=== PATIENT | female | born 1965 | race Hispanic/Latino ===

== ENCOUNTER 2017-03-03 06:25 | Emergency (ER) | payer BC ==
[2017-03-03 07:03] VITALS: BP 156/92
[2017-03-03 07:32] LABS: Basophils % (Auto) 0.7 % (0.0-1.8); Eosinophils % (Auto) 7.2 % (0.0-4.3); Hematocrit 47.1 % (30.3-42.9); Hemoglobin 15.5 gm/dl (10.1-14.3); Mean Corpuscular HGB Conc 33 % (30-34); Mean Corpuscular Hemoglobin 30 pg (28-32); Mean Corpuscular Volume 91 fl (79-97); Platelet Count 312 K/mm3 (140-440); Red Blood Count 5.17 M/mm3 (3.65-5.03); Red Cell Distribution Width 13.5 % (13.2-15.2); White Blood Count 11.7 K/mm3 (4.5-11.0)
[2017-03-03 07:49] LABS: Anion Gap 18 mmol/L; Blood Urea Nitrogen 5 mg/dL (7-17); Calcium 8.6 mg/dL (8.4-10.2); Carbon Dioxide 23 mmol/L (22-30); Chloride 102.1 mmol/L (98-107); Glucose 177 mg/dL (65-100); Potassium 3.4 mmol/L (3.6-5.0); Sodium 140 mmol/L (137-145)
== END 2017-03-03 10:04 | disposition left against medical advice (07) ==
LOC: ED 06:25
DX: R07.9 Chest pain, unspecified (principal); Z53.21 Procedure and treatment not carried out due to patient leaving prior to being seen by health care provider
CPT/HCPCS: 36415; 80048; 84484; 85025; 93005; 93010

== ENCOUNTER 2018-02-26 15:59 | Emergency (ER) | payer BC ==
[2018-02-26 16:11] VITALS: BP 149/86
[2018-02-26] MEDS ORDERED: ZOFRAN ODT PO ONE (16:58)
[2018-02-26] MEDS ORDERED: NORCO 5/325 PO ONE (16:58)
--- NOTE | 2018-02-26 17:02 | Emergency Department Report ---
ED Fall HPI - General Chief Complaint: Fall Stated Complaint: NECK/ARM/SIDE PAIN Time Seen by Provider: 02/26/18 16:49 Source: patient Mode of arrival: Ambulatory - History of Present Illness Initial Comments: 52-year-old female past medical history breast cancer, migraines, obesity, depression presents with complaint of neck pain and headache status post mechanical fall down stairs at home earlier today. Patient states that as she was walking downstairs at home there was a slippery substance on the last step she slipped and fell backward and the back of her neck hit the edge of staircase. Patient braced himself slightly with right arm. Denies loss of consciousness but was dazed for several minutes. Patient was assisted by bystander. Denies sustaining any lacerations. Complaining of slight aching and right forearm which has since subsided. Patient primarily complaining of posterior neck pain. Denies any blurry vision nausea vomiting up her lower extremity paresthesias. Patient is ambulatory without assistance. MD Complaint: fall -: This morning Fall From: down stairs (#) (1) Fall Witnessed: yes, by family Place Fall Occurred: home Loss of Consciousness: none Prolonged Down Time?: no Symptoms Prior to Fall: none Location: neck Location - Extremities: Right: Forearm Severity: moderate Severity scale (0 -10): 6 Quality: aching Context: tripped/slipped Associated Symptoms: denies, headache, neck pain - Related Data Home Medications Medication Instructions Recorded Confirmed Last Taken Citalopram [Celexa] 20 mg PO QDAY 07/26/13 09/09/13 09/08/13 Topiramate [Topamax] 100 mg PO BID 07/26/13 09/09/13 09/08/13 Previous Rx's Medication Instructions Recorded Last Taken Type Cyclobenzaprine HCl [FLEXERIL] 10 mg PO TID PRN #12 tablet 09/09/13 Unknown Rx HYDROcodone/APAP 5-325 [[place] 1 each PO Q6HR PRN #12 tablet 09/09/13 Unknown Rx 5/325 mg] Acetaminophen/Codeine [Tylenol 1 tab PO Q6H PRN #6 tab 02/26/18 Unknown Rx /Codeine # 3 tab] Ibuprofen [Motrin] 800 mg PO Q8HR PRN #20 tablet 02/26/18 Unknown Rx Allergies Allergy/AdvReac Type Severity Reaction Status Date / Time No Known Allergies Allergy Verified 07/26/13 20:13 ED Review of Systems ROS: Stated complaint: NECK/ARM/SIDE PAIN Other details as noted in HPI Constitutional: denies: chills, fever Eyes: denies: eye pain, eye discharge, vision change ENT: denies: ear pain, throat pain Respiratory: denies: cough, shortness of breath, wheezing Cardiovascular: denies: chest pain, palpitations Endocrine: no symptoms reported Gastrointestinal: denies: abdominal pain, nausea, diarrhea Genitourinary: denies: urgency, dysuria, discharge Musculoskeletal: denies: back pain, joint swelling, arthralgia Skin: denies: rash, lesions Neurological: denies: headache, weakness, paresthesias Psychiatric: denies: anxiety, depression Hematological/Lymphatic: denies: easy bleeding, easy bruising ED Past Medical Hx - Past Medical History Hx Headaches / Migraines: Yes Hx Psychiatric Treatment: Yes (depression) Additional medical history: Migraines - Surgical History Hx Cholecystectomy: Yes Additional Surgical History: Hysterectomy, tonilectomy, tubal ligation, bunion removal - Social History Smoking Status: Never Smoker Substance Use Type: None - Medications Home Medications: Home Medications Medication Instructions Recorded Confirmed Last Taken Type Citalopram [Celexa] 20 mg PO QDAY 07/26/13 09/09/13 09/08/13 History Topiramate [Topamax] 100 mg PO BID 07/26/13 09/09/13 09/08/13 History Cyclobenzaprine HCl [FLEXERIL] 10 mg PO TID PRN #12 tablet 09/09/13 Unknown Rx HYDROcodone/APAP 5-325 [[place] 1 each PO Q6HR PRN #12 tablet 09/09/13 Unknown Rx 5/325 mg] Acetaminophen/Codeine [Tylenol 1 tab PO Q6H PRN #6 tab 02/26/18 Unknown Rx /Codeine # 3 tab] Ibuprofen [Motrin] 800 mg PO Q8HR PRN #20 tablet 02/26/18 Unknown Rx ED Physical Exam - General Limitations: No Limitations General appearance: alert, in no apparent distress - Head Head exam: Present: atraumatic, normocephalic - Eye Eye exam: Present: normal appearance, PERRL, EOMI - ENT ENT exam: Present: mucous membranes moist - Neck Neck exam: Present: normal inspection, tenderness (there is slight ecchymosis on posterior neck. Tender to palpation), full ROM (neck flexion and extension is intact) - Respiratory Respiratory exam: Present: normal lung sounds bilaterally, other (no bruising on chest wall). Absent: respiratory distress - Cardiovascular Cardiovascular Exam: Present: regular rate, normal rhythm. Absent: systolic murmur, diastolic murmur, rubs, gallop - GI/Abdominal GI/Abdominal exam: Present: soft (abdomen soft nontender nondistended), normal bowel sounds - Extremities Exam Extremities exam: Present: normal inspection - Back Exam Back exam: Present: normal inspection, full ROM (there is no midline thoracic or lumbar spinal tenderness) - Neurological Exam Neurological exam: Present: alert, oriented X3, CN II-XII intact, normal gait - Expanded Neurological Exam Expanded Patient oriented to: Present: person, place, time Cranial nerves: EOM's Intact: Normal Cerebellar function: Finger to Nose: Normal, Heel to Sapp: Normal Sensory exam: Upper Extremity Light Touch: Normal, Lower Extremity Pin Prick: Normal Motor strength exam: RUE: 5, LUE: 5, RLE: 5, LLE: 5 Best Eye Response (Raysal): (4) open spontaneously Best Motor Response (Raysal): (6) obeys commands Best Verbal Response (Haseeb): (5) oriented Raysal Total: 15 - Psychiatric Psychiatric exam: Present: normal affect, normal mood - Skin Skin exam: Present: warm, dry, intact, normal color. Absent: rash ED Course Vital Signs 02/26/18 16:08 Temperature 98 F Pulse Rate 74 Respiratory 16 Rate Blood Pressure 149/86 O2 Sat by Pulse 96 Oximetry ED Medical Decision Making - Medical Decision Making A/P: Mechanical fall 1-no evidence of fractures or intracranial hemorrhage on CT is 2-Motrin when necessary, short course Tylenol 3 when necessary 3-follow-up with primary care doctor 4- no clinical neurological deficits. No midline thoracic or lumbar spinal tenderness. Patient is ambulatory without assistance. Strength 5 out of 5 bilateral upper and lower extremities. Critical care attestation.: If time is entered above; I have spent that time in minutes in the direct care of this critically ill patient, excluding procedure time. ED Disposition Clinical Impression: Musculoskeletal pain Fall down stairs Qualifiers: Encounter type: initial encounter Qualified Code(s): W10.8XXA - Fall (on) (from ) other stairs and steps, initial encounter Disposition: - TO HOME OR SELFCARE Is pt being admited?: No Does the pt Need Aspirin: No Condition: Stable Instructions: Musculoskeletal Pain (ED) Prescriptions: Acetaminophen/Codeine [Tylenol /Codeine # 3 tab] 1 tab PO Q6H PRN #6 tab PRN Reason: Pain Ibuprofen [Motrin] 800 mg PO Q8HR PRN #20 tablet PRN Reason: Pain Referrals: PRIMARY CARE, [Primary Care Provider] - 3-5 Days JACQUELINE OLIVAS MD [Staff Physician] - 3-5 Days MARTHA SETH MD [Staff Physician] - 3-5 Days [facility] [Provider Group] - 3-5 Days Time of Disposition: 18:26
--- NOTE | 2018-03-02 14:17 | Cat Scan Report ---
FINAL REPORT EXAM: CT CERVICAL SPINE WO CON HISTORY: neck pain s/p fall down stairs TECHNIQUE: CT cervical spine with reconstructions PRIORS: None. FINDINGS: Vertebral bodies demonstrate normal height and alignment. The disk spaces are within normal limits. The facet joints demonstrate normal alignment. The spinous processes are intact. Craniocervical junction is unremarkable. C1 and C2 are intact. IMPRESSION: Negative CT cervical spine. No acute abnormality seen.
--- NOTE | 2018-03-02 14:17 | Cat Scan Report ---
FINAL REPORT EXAM: CT HEAD/BRAIN WO CON HISTORY: s/p fall down stairs head and neck pain TECHNIQUE: CT head without contrast PRIORS: None. FINDINGS: No acute intra-axial or extra-axial hemorrhage is identified. There is no evidence of midline shift or mass effect. The ventricles and sulci are within normal limits. [place]-white matter differentiation is intact. No acute parenchymal abnormalities seen. Bony calvarium is grossly intact. V there is a fluid level present within the right maxillary sinus. IMPRESSION: Right maxillary sinusitis likely acute No acute intracranial findings
== END 2018-02-26 18:33 | disposition home or self-care (01) ==
LOC: ED 15:59
DX: M79.1 Myalgia (principal); G43.909 Migraine, unspecified, not intractable, without status migrainosus; Z90.49 Acquired absence of other specified parts of digestive tract; Z90.710 Acquired absence of both cervix and uterus; Z98.51 Tubal ligation status; F32.9 Major depressive disorder, single episode, unspecified; W10.8XXA Fall (on) (from) other stairs and steps, initial encounter; Y93.89 Activity, other specified; Y92.89 Other specified places as the place of occurrence of the external cause; Y99.8 Other external cause status
CPT/HCPCS: 70450; 72125; 99283; Q0162

== ENCOUNTER 2018-07-02 07:51 | Outpatient (CLI) | payer BC ==
[2018-07-02 08:28] LABS: Alanine Aminotransferase 70 units/L (7-56); Albumin 4.2 g/dL (3.9-5); BUN/Creatinine Ratio 20; Blood Urea Nitrogen 10 mg/dL (7-17); Calcium 9.2 mg/dL (8.4-10.2); Hemolysis Index 8
[2018-07-05 22:12] LABS: ANA Screen, IFA Negative (Negative)
== END 2018-07-02 07:52 | disposition home or self-care (01) ==
LOC: LAB 07:51
PROVIDERS: ATTEND Internal Medicine Gastroenterology
DX: K75.81 Nonalcoholic steatohepatitis (NASH) (principal); E11.9 Type 2 diabetes mellitus without complications; E78.5 Hyperlipidemia, unspecified; I10 Essential (primary) hypertension; G43.509 Persistent migraine aura without cerebral infarction, not intractable, without status migrainosus; Z90.49 Acquired absence of other specified parts of digestive tract; Z90.710 Acquired absence of both cervix and uterus
CPT/HCPCS: 36415; 80053; 83516; 83520; 86038

== ENCOUNTER 2018-07-08 07:45 | Outpatient (CLI) | payer BC ==
--- NOTE | 2018-07-08 08:52 | Ultrasound Report ---
ULTRASOUND ABDOMEN LIMITED: TECHNIQUE: Transabdominal ultrasound with color Doppler interrogation. HISTORY: Diabetes, hyperlipidemia, hypertension, YANG. COMPARISON: none. FINDINGS: LIVER: Moderate to severe fatty infiltration of the liver is evident. No obvious liver mass, enlargement or surface nodularity. BILIARY SYSTEM: Cholecystectomy. No biliary dilatation is appreciated. The CBD measures 6 mm. PANCREAS: Obscured. RIGHT KIDNEY: Normal. PROXIMAL AORTA: Normal. ASCITES: None. IMPRESSION: Fatty liver.
== END 2018-07-08 07:46 | disposition home or self-care (01) ==
LOC: US 07:45
PROVIDERS: ATTEND Internal Medicine Gastroenterology
DX: K76.0 Fatty (change of) liver, not elsewhere classified (principal); E11.9 Type 2 diabetes mellitus without complications; E78.5 Hyperlipidemia, unspecified; I10 Essential (primary) hypertension; G43.509 Persistent migraine aura without cerebral infarction, not intractable, without status migrainosus; Z90.710 Acquired absence of both cervix and uterus; Z90.49 Acquired absence of other specified parts of digestive tract
CPT/HCPCS: 76705

== ENCOUNTER 2018-11-16 08:43 | Outpatient (CLI) | payer BC ==
--- NOTE | 2018-11-16 14:19 | Mammography Report ---
BILATERAL DIGITAL DIAGNOSTIC MAMMOGRAM with CAD: 11/16/18 08:43:00 CLINICAL: History of left breast cancer status post partial mastectomy and history of a right benign biopsy. Status post bilateral reduction mammoplasty. COMPARISON:05/08/18 FINDINGS: The breasts are mostly fatty with a few bilateral scattered fibroglandular densities. Mild bilateral benign postsurgical scar.No mass, architectural distortion or suspicious calcifications. A right upper biopsy clip. IMPRESSION: No mammographic evidence of malignancy. BI-RADS CATEGORY: 2 - - Benign RECOMMENDATION: Routine mammographic screening in one year. ACR BI-RADS MAMMOGRAPHIC CODES: 0 = Needs additional imaging evaluation; 1 = Negative; 2 = Benign; 3 = Probably benign; 4 = Suspicious; 5 = Malignant; 6 = Known biopsy-proven malignancy COMMENT: 1. Dense breast tissue, i.e., adenosis, fibrocystic changes, etc., may obscure an underlying neoplasm. 2. Approximately 10% of cancers are not detected with mammography. 3. A negative mammography report should not delay biopsy if a clinically suspicious mass is present. COMMENT: Patient follow-up letters are generated by our [employer] application.
== END 2018-11-16 08:44 | disposition home or self-care (01) ==
LOC: SPVWC 08:43
PROVIDERS: ATTEND Surgery
DX: C50.212 Malignant neoplasm of upper-inner quadrant of left female breast (principal); I10 Essential (primary) hypertension; Z90.49 Acquired absence of other specified parts of digestive tract; Z90.710 Acquired absence of both cervix and uterus
CPT/HCPCS: 77066

== ENCOUNTER 2018-12-02 15:03 | Emergency (ER) | payer BC ==
--- NOTE | 2018-12-02 15:19 | Emergency Department Report ---
Blank Doc - Documentation Documentation: This is a 53-year-old female that presents with bilateral cervical paraspinal area. Patient stated that she was at work looking down and when she looked up started to have sharp pain. Denies any injuries or trauma. This initial assessment/diagnostic orders/clinical plan/treatment(s) is/are subject to change based on patient's health status, clinical progression and re- assessment by fellow clinical providers in the ED. Further treatment and workup at subsequent clinical providers discretion. Patient/guardians urged not to elope from the ED as their condition may be serious if not clinically assessed and managed. Initial orders include: 1- Patient sent to [facility] for further evaluation and treatment
[2018-12-02 15:20] VITALS: BP 130/75
--- NOTE | 2018-12-02 15:47 | Emergency Department Report ---
ED Neck Pain/Injury HPI - General Chief Complaint: Neck Pain/Injury Stated Complaint: NECK PAIN Time Seen by Provider: 12/02/18 15:17 Mode of arrival: Ambulatory Limitations: No Limitations - History of Present Illness Initial Comments: Miss Hooks is a very pleasant 52-year-old female who had sudden onset of upper neck pain when she looked down while sitting at her desk. Pain is moderately severe. She has stiffness. She has difficulty looking left or right. Last summer she had neck injury after fall. CT scan of the neck was obtained here in our emergency department after that trauma last January.. She denies paresthesias. No weakness in arms. Denies chest pain. MD Complaint: neck pain, neck injury -: Gradual Severity: moderate Quality: aching Consistency: constant Worsens With: movement of neck Context: turning/bending - Related Data Home Medications Medication Instructions Recorded Confirmed Last Taken Citalopram [Celexa] 20 mg PO QDAY 07/26/13 09/09/13 09/08/13 Topiramate [Topamax] 100 mg PO BID 07/26/13 09/09/13 09/08/13 Previous Rx's Medication Instructions Recorded Last Taken Type Cyclobenzaprine HCl [FLEXERIL] 10 mg PO TID PRN #12 tablet 09/09/13 Unknown Rx HYDROcodone/APAP 5-325 [[place] 1 each PO Q6HR PRN #12 tablet 09/09/13 Unknown Rx 5/325 mg] Acetaminophen/Codeine [Tylenol 1 tab PO Q6H PRN #6 tab 02/26/18 Unknown Rx /Codeine # 3 tab] Acetaminophen/Codeine [Tylenol 1 tab PO Q6H PRN #15 tab 08/24/18 Unknown Rx /Codeine # 3 tab] Ibuprofen [Motrin 800 MG tab] 800 mg PO Q8HR PRN #12 tablet 08/24/18 Unknown Rx Sulfamethoxazole/Trimethoprim 1 each PO BID 10 Days #20 tablet 08/24/18 Unknown Rx [Bactrim DS TAB] Sulfamethoxazole/Trimethoprim 1 each PO BID 10 Days #20 tablet 08/24/18 Unknown Rx [Bactrim DS TAB] cephALEXin [Keflex] 500 mg PO Q8HR 7 Days #21 cap 08/24/18 Unknown Rx Cyclobenzaprine [Flexeril] 10 mg PO TID PRN #20 tablet 12/02/18 Unknown Rx Ibuprofen 800 mg PO TID 5 Days #15 tablet 12/02/18 Unknown Rx Allergies Allergy/AdvReac Type Severity Reaction Status Date / Time No Known Allergies Allergy Verified 07/26/13 20:13 ED Review of Systems ROS: Stated complaint: NECK PAIN Other details as noted in HPI Constitutional: denies: fever, malaise Respiratory: denies: cough Cardiovascular: denies: chest pain ED Past Medical Hx - Past Medical History Previous Medical History?: Yes Hx Hypertension: Yes Hx Diabetes: Yes Hx Headaches / Migraines: Yes Hx Psychiatric Treatment: Yes (depression) Additional medical history: Migraines - Surgical History Past Surgical History?: Yes Hx Cholecystectomy: Yes Additional Surgical History: Hysterectomy, tonilectomy, tubal ligation, bunion removal, bilateral lumpectomy with reconstruction. x 2 - Social History Smoking Status: Never Smoker Substance Use Type: None - Medications Home Medications: Home Medications Medication Instructions Recorded Confirmed Last Taken Type Citalopram [Celexa] 20 mg PO QDAY 07/26/13 09/09/13 09/08/13 History Topiramate [Topamax] 100 mg PO BID 07/26/13 09/09/13 09/08/13 History Cyclobenzaprine HCl [FLEXERIL] 10 mg PO TID PRN #12 tablet 09/09/13 Unknown Rx HYDROcodone/APAP 5-325 [[place]olph 1 each PO Q6HR PRN #12 tablet 09/09/13 Unknown Rx 5/325 mg] Acetaminophen/Codeine [Tylenol 1 tab PO Q6H PRN #6 tab 02/26/18 Unknown Rx /Codeine # 3 tab] Acetaminophen/Codeine [Tylenol 1 tab PO Q6H PRN #15 tab 08/24/18 Unknown Rx /Codeine # 3 tab] Ibuprofen [Motrin 800 MG tab] 800 mg PO Q8HR PRN #12 tablet 08/24/18 Unknown Rx Sulfamethoxazole/Trimethoprim 1 each PO BID 10 Days #20 tablet 08/24/18 Unknown Rx [Bactrim DS TAB] Sulfamethoxazole/Trimethoprim 1 each PO BID 10 Days #20 tablet 08/24/18 Unknown Rx [Bactrim DS TAB] cephALEXin [Keflex] 500 mg PO Q8HR 7 Days #21 cap 08/24/18 Unknown Rx Cyclobenzaprine [Flexeril] 10 mg PO TID PRN #20 tablet 12/02/18 Unknown Rx Ibuprofen 800 mg PO TID 5 Days #15 tablet 12/02/18 Unknown Rx ED Physical Exam - General Limitations: No Limitations General appearance: alert, in no apparent distress - Head Head exam: Present: atraumatic, normocephalic - Eye Eye exam: Present: normal appearance. Absent: scleral icterus, conjunctival injection - ENT ENT exam: Present: normal exam. Absent: normal orophraynx - Neck Neck exam: Present: normal inspection, full ROM. Absent: tenderness, meningismus - Respiratory Respiratory exam: Absent: respiratory distress - Neurological Exam Neurological exam: Present: alert, oriented X3. Absent: motor sensory deficit (intact handgrip strength, intact bicep/tricep strength) - Psychiatric Psychiatric exam: Absent: normal affect, normal mood - Skin Skin exam: Absent: warm, dry, intact, normal color ED Course Vital Signs 12/02/18 15:19 Temperature 97.9 F Pulse Rate 86 Respiratory 18 Rate Blood Pressure 130/75 O2 Sat by Pulse 97 Oximetry ED Medical Decision Making - Medical Decision Making Mrs. Hooks presents with cervical strain. Given IM Toradol in the ED. Prescribed ibuprofen and Flexeril. Referred to orthopedic surgeon. I reviewed electronic medical record. In January [address] cervical spine which did not reveal any abnormality or indication of degenerative disc disease. Critical care attestation.: If time is entered above; I have spent that time in minutes in the direct care of this critically ill patient, excluding procedure time. ED Disposition Clinical Impression: Acute cervical sprain Disposition: DC- TO HOME OR SELFCARE Is pt being admited?: No Does the pt Need Aspirin: No Condition: Stable Instructions: Cervical Spine Strain (ED) Prescriptions: Cyclobenzaprine [Flexeril] 10 mg PO TID PRN #20 tablet PRN Reason: Muscle Spasm Ibuprofen 800 mg PO TID 5 Days #15 tablet Referrals: MARTHA SETH MD [Staff Physician] - 3-5 Days
[2018-12-02] MEDS ORDERED: TORADOL IM ONE (15:50)
== END 2018-12-02 15:59 | disposition home or self-care (01) ==
LOC: ED 15:03
DX: S16.1XXA Strain of muscle, fascia and tendon at neck level, initial encounter (principal); I10 Essential (primary) hypertension; E11.9 Type 2 diabetes mellitus without complications; G43.909 Migraine, unspecified, not intractable, without status migrainosus; F32.9 Major depressive disorder, single episode, unspecified; Z90.49 Acquired absence of other specified parts of digestive tract; Z90.710 Acquired absence of both cervix and uterus; W18.30XA Fall on same level, unspecified, initial encounter; Y93.89 Activity, other specified; Y92.89 Other specified places as the place of occurrence of the external cause; Y99.8 Other external cause status
CPT/HCPCS: 96372; 99282; J1885

== ENCOUNTER 2018-12-16 08:01 | Outpatient (CLI) | payer BC ==
[2018-12-16 08:40] LABS: Alanine Aminotransferase 139 units/L (7-56); Albumin 4.3 g/dL (3.9-5); BUN/Creatinine Ratio 12; Blood Urea Nitrogen 6 mg/dL (7-17); Calcium 9.3 mg/dL (8.4-10.2); Chol/HDL Ratio 4.1 %; Hemolysis Index 3
== END 2018-12-16 08:02 | disposition home or self-care (01) ==
LOC: LAB 08:01
PROVIDERS: ATTEND Internal Medicine Gastroenterology
DX: K76.0 Fatty (change of) liver, not elsewhere classified (principal); E11.9 Type 2 diabetes mellitus without complications; I10 Essential (primary) hypertension; Z90.710 Acquired absence of both cervix and uterus; Z90.49 Acquired absence of other specified parts of digestive tract
CPT/HCPCS: 36415; 80053; 80061; 83036

== ENCOUNTER 2019-02-18 06:52 | Outpatient (CLI) | payer BC ==
--- NOTE | 2019-02-18 09:35 | PET Report ---
PET/CT:02/18/19 06:52:00 CLINICAL: Breast cancer restaging. History of left breast cancer status post partial mastectomy and history of a right benign biopsy. History of bilateral reduction mammoplasty. RADIOPHARMACEUTICAL: 13.192mCi F18-FDG. COMPARISON: None. TECHNIQUE- Following intravenous injection of F-18 FDG and an approximately 60 minute uptake period, CT and PET images from the mid skull to the upper thighs were acquired with the patient in the fasted state. No contrast was administered. The CT protocol used for this PET CT study is designed for attenuation correction and anatomic localization of PET abnormalities. This restorative rehab aide CT is not desired to produce and cannot replace, [id number] diagnostic CT scans with specific imaging protocols for different body parts and indications. Plasma glucose at the time of this test: 129g/dl. The standardized uptake values (SUV) are normalized to patient body weight and indicate the highest activity concentration (SUV max) in a given disease site. FINDINGS: Brain--Physiologic FDG uptake in the visualized regions of the brain. Neck--Physiologic FDG uptake in mucosal structures. No mass or lymphadenopathy. Chest--Physiologic FDG uptake in mediastinal blood pool and myocardium. Lungs--No abnormal uptake. No pulmonary nodule or mass. Pleura/pericardium--No abnormal uptake. Thoracic nodes--No abnormal uptake. Hepatobiliary--No abnormal uptake. Liver background SUV mean, as a reference for comparing FDG studies, is 5.1 . No liver mass. Status post cholecystectomy. Spleen--No abnormal uptake. Pancreas--No abnormal uptake. Adrenal Glands--No abnormal uptake. Kidneys/Ureters/Bladder--No abnormal uptake. Abdominopelvic Nodes--No abnormal uptake. Bowel/Peritoneum/Mesentery--No abnormal uptake. Physiologic uptake in the distal colon. Pelvic organs--No abnormal uptake. Status post hysterectomy. No ovaries identified. Bones/Soft Tissues--No abnormal uptake and no suspicious bone lesion. Other findings: A fat containing umbilical hernia. IMPRESSION- Negative study with no evidence of disease recurrence or metastasis.
== END 2019-02-18 06:53 | disposition home or self-care (01) ==
LOC: PET 06:52
PROVIDERS: ATTEND Surgery
DX: C50.312 Malignant neoplasm of lower-inner quadrant of left female breast (principal); I10 Essential (primary) hypertension; Z90.710 Acquired absence of both cervix and uterus; Z90.49 Acquired absence of other specified parts of digestive tract
CPT/HCPCS: 78815; 82962; A9552

== ENCOUNTER 2019-03-09 07:05 | Day surgery (SDC) | payer BC ==
[~2019-03-09 07:05] MED LIST: NACL 0.9% 1000 ML 1,000 ML IV SCH
[2019-03-09] MEDS ORDERED: DIPRIVAN 10 MG/ML IV ONE ×2 (09:48→10:13)
[2019-03-09] MEDS ORDERED: XYLOCAINE 2% INFILTRATI ONE (10:13)
[2019-03-09] MEDS ORDERED: VERSED ONE (10:13)
--- NOTE | 2019-03-09 10:51 | Anesthesia Consultation ---
Anesthesia Consult and Med Hx Date of service: 03/09/19 - Airway Anesthetic Teeth Evaluation: Good ROM Head & Neck: Adequate Mental/Hyoid Distance: Adequate Mallampati Class: Class III Intubation Access Assessment: Good - Pulmonary Exam CTA: Yes - Cardiac Exam Cardiac Exam: No Murmur - Pre-Operative Health Status ASA Pre-Surgery Classification: ASA3 Proposed Anesthetic Plan: MAC - Pulmonary Hx Smoking: No Hx Asthma: No - Cardiovascular System Hx Hypertension: Yes - Other Systems Hx Cancer: Yes Hx Obesity: Yes
--- NOTE | 2019-03-09 10:52 | Anesthesia Day of Surgery ---
Anesthesia Day of Surgery - Day of Surgery Patient Examined: Yes Patient H&P Reviewed: Yes Patient is NPO: Yes Beta Blockers: No
--- NOTE | 2019-03-09 10:54 | Short Stay Summary ---
Short Stay Documentation Date of service: 03/09/19 Narrative H&P: The patient presents for her first sceening colonoscopy and for EGD to evaluate severe established GERD and exclude Brennan's - History Past Medical History: cancer (breast cancer), diabetes, hypertension Past Surgical History: Other (breast surgery) Social history: no significant social history - Allergies and Medications Current Medications: Allergies No Known Allergies Allergy (Verified 07/26/13 20:13) Home Medications Medication Instructions Recorded Confirmed Last Taken Type Aleve 1 tab PO PRN PRN 01/01/19 03/08/19 Unknown History Anastrozole 1 mg PO DAILY 01/01/19 03/09/19 03/08/19 History Cetirizine HCl 10 mg PO DAILY 01/01/19 03/08/19 Unknown History Clonidine 0.1 mg PO DAILY 01/01/19 03/09/19 03/06/19 History Janumet 50-1,000 mg 1 tab PO BID 01/01/19 03/09/19 03/08/19 History Losartan 25 mg PO DAILY 01/01/19 03/08/19 03/08/19 History Omeprazole 1 tab PO DAILY 01/01/19 03/09/19 03/08/19 History LORazepam 1 mg PO DAILY 03/09/19 03/09/19 03/05/19 History Active Medications Sodium Chloride (Nacl 0.9% 1000 Ml) 1,000 mls @ 50 mls/hr IV DIRECT BEBA Last Admin: 03/09/19 09:35 Dose: 50 mls/hr Documented by: - Physical exam General appearance: no acute distress, well-nourished, obese Integumentary: no rash, no growths, no abnormal pigmentation HEENT: Atraumatic, PERRLA, EOMI, Mucous membr. moist/pink Lungs: Clear to auscultation, Normal air movement Breasts: deferred Heart: Regular rate, Normal S1, Normal S2, No murmurs Gastrointestinal: normoactive bowel sounds, no tenderness, no distended, no masses, no guarding, no organomegaly, obese Female Genitourinary: deferred Rectal Exam: normal exam-external/orifice Extremities: no ischemia, pulses intact, pulses symmetrical, No edema, normal temperature, normal color, Full ROM Neurological: Normal gait, Normal speech, Strength at 5/5 X4 ext, Normal tone, Sensation intact, Cranial nerves 3-12 NL - Brief post op/procedure progress note Date of procedure: 03/09/19 Findings: see dictated reports Estimated blood loss: none Pathology: list (2 descending colon polyps) Specimen disposition: to lab Condition: stable - Disposition Condition at discharge: Good Disposition: DC-01 TO HOME OR SELFCARE - Discharge Diagnoses (1) GERD (gastroesophageal reflux disease) Status: Acute (2) Colon cancer screening Status: Acute Short Stay Discharge Plan Activity: other (no driving for 24 hours) Weight Bearing Status: Full Weight Bearing Diet: diabetic Follow up with: LINDA CARLTON MD [Primary Care Provider] - 7 Days
--- NOTE | 2019-03-09 10:59 | Operative Report ---
Operative Report Operative Report: Date of procedure: 03/09/2019 Procedure: Esophagogastroduodenoscopy Preprocedure diagnosis: Severe heartburn, rule out Brennan's. Post procedure diagnosis: Mild distal esophagitis, normal stomach and duodenum. Endoscopist: Dr. Lozada Anesthesia: Monitored anesthesia care per anesthesia department Medications: Propofol per anesthesia Estimated blood loss: 0 After careful discussion of the nature and purpose of the procedure as well as details the technique risks benefits and alternatives consent was obtained. The patient was placed in the left lateral decubitus position and medicated per anesthesia. The tip of the Bulbstorm EQ 570 video scope was passed per orum under direct vision into the esophagus and advanced into the stomach and descending duodenum. The descending duodenum the duodenal bulb and pylorus were symmetrical and normal. The scope was withdrawn into the stomach and the stoma ch then gently insufflated with air. The antrum was normal. The stomach was further insufflated and the scope was then retroflexed and partially withdrawn. The cardia, fundus, and body of the stomach were within normal limits and easily distensible.The scope was then withdrawn in the forward position. The esophagogastric junction was at 38 cm. There was very mild inflammation present right at the Z line. The esophageal body was otherwise normal throughout. The procedure was was well tolerated and the patient was observed in recovery. Impressions: LA class a esophagitis and no evidence of Brennan's. Normal stomach and duodenum. Plan: Continue acid suppression therapy. Electronically signed: Yordan Lozada MD
--- NOTE | 2019-03-09 11:02 | Operative Report ---
Operative Report Operative Report: Date of procedure: 03/09/2019 Preprocedure diagnosis: Colon cancer screening, no prior studies. Post procedure diagnosis: 2 descending colon polyps. Procedure: Colonoscopy to the cecum and hot snare cautery 2. Endoscopist: Dr. Lozada Anesthesia: Monitored anesthesia care per anesthesia department Estimated blood loss: 0 Medications: Monitored anesthesia care. See separate report by anesthesia for details. After careful discussion of the nature and purpose of the procedure as well as details of the technique risks benefits and alternatives the patient gave consent. Please see recent history and physical from the office. The patient was placed in the left lateral decubitus position and medicated per anesthesia. A rectal exam was performed sphincter tone was normal there were no masses palpable. The [employer] 570 scope was passed transanally and advanced under continuous direct vision without difficulty to the cecum. The colon was well prepared. The cecum was normal. The ascending colon was normal and on forward and retroflexed views. The transverse colon was normal. There were 2 polyps in the descending colon between 6 and 8 mm in size. Both polyps were pedunculated and removed with the snare and electrocautery. Polyps were retrieved by suction. No bleeding was encountered post polypectomy. The sigmoid colon reveal scattered diverticula. The rectum was normal on forward and retroflexed views. The procedure was well-tolerated overall and the patient was observed in r ecovery. Conclusions: Descending colon polyps. Scattered sigmoid diverticula. Plan: Await pathology. Repeat colonoscopy in 5 years. Signed electronically: Yordan Lozada M.D.
[2019-03-09 11:18] VITALS: BP 116/63
== END 2019-03-09 07:06 | disposition home or self-care (01) ==
LOC: GIO 07:05
PROVIDERS: ATTEND Internal Medicine Gastroenterology
DX: Z12.11 Encounter for screening for malignant neoplasm of colon (principal); D12.4 Benign neoplasm of descending colon; K21.0 Gastro-esophageal reflux disease with esophagitis; K75.81 Nonalcoholic steatohepatitis (NASH); E11.9 Type 2 diabetes mellitus without complications; I10 Essential (primary) hypertension; G43.509 Persistent migraine aura without cerebral infarction, not intractable, without status migrainosus; Z87.440 Personal history of urinary (tract) infections; Z90.49 Acquired absence of other specified parts of digestive tract; Z85.3 Personal history of malignant neoplasm of breast; Z98.51 Tubal ligation status; Z90.710 Acquired absence of both cervix and uterus; Z79.899 Other long term (current) drug therapy; Z85.89 Personal history of malignant neoplasm of other organs and systems; Z98.890 Other specified postprocedural states
CPT/HCPCS: 43235; 45385; 82962; 88305; J2250; J2704; J7030

== ENCOUNTER 2019-03-24 07:15 | Outpatient (CLI) | payer BC ==
[2019-03-24 07:42] LABS: Hematocrit 46.9 % (30.3-42.9); Mean Corpuscular HGB Conc 34 % (30-34); Mean Corpuscular Volume 92 fl (79-97); Platelet Count 284 K/mm3 (140-440); Red Blood Count 5.09 M/mm3 (3.65-5.03); Red Cell Distribution Width 13.7 % (13.2-15.2)
[2019-03-24 08:01] LABS: Alanine Aminotransferase 91 units/L (7-56); Albumin 4.1 g/dL (3.9-5); BUN/Creatinine Ratio 14; Blood Urea Nitrogen 10 mg/dL (7-17); Calcium 9.1 mg/dL (8.4-10.2); Hemolysis Index 11
== END 2019-03-24 07:16 | disposition home or self-care (01) ==
LOC: LAB 07:15
PROVIDERS: ATTEND Internal Medicine Hematology & Oncology
DX: C50.912 Malignant neoplasm of unspecified site of left female breast (principal); K21.9 Gastro-esophageal reflux disease without esophagitis; I10 Essential (primary) hypertension; E66.9 Obesity, unspecified; Z90.89 Acquired absence of other organs; Z90.710 Acquired absence of both cervix and uterus
CPT/HCPCS: 36415; 80053; 85027; 86300

== ENCOUNTER 2019-04-15 07:37 | Outpatient (CLI) | payer BC ==
--- NOTE | 2019-04-16 01:21 | Treadmill Report ---
TREADMILL STRESS TEST REPORT REASON FOR STUDY: Chest pain. STRESS TEST PROTOCOL: The patient completed 7 minutes and 48 seconds of a Alvin protocol. She attained a peak heart rate of 146 per minute, which is 87% of her age predicted maximum (8.9 mets). No ischemic ECG changes. No chest pain. No arrhythmias. The test was terminated due to fatigue. IMPRESSION: Negative stress test. No evidence of stress-induced ischemia. [facility]# [id number] MARIALUISA/NTS
== END 2019-04-15 07:38 | disposition home or self-care (01) ==
LOC: CARD 07:37
PROVIDERS: ATTEND Nurse Practitioner Gerontology
DX: I34.0 Nonrheumatic mitral (valve) insufficiency (principal); E11.9 Type 2 diabetes mellitus without complications; K21.9 Gastro-esophageal reflux disease without esophagitis; I10 Essential (primary) hypertension; Z90.710 Acquired absence of both cervix and uterus; Z90.89 Acquired absence of other organs
CPT/HCPCS: 93017; 93306

== ENCOUNTER 2019-04-20 15:10 | Emergency (ER) | payer BC, OTHER ==
[2019-04-20 15:20] VITALS: BP 125/67
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
--- NOTE | 2019-04-20 15:52 | XRay Report ---
RIGHT ELBOW 2 VIEWS INDICATION / CLINICAL INFORMATION: Injury with right elbow pain. COMPARISON: None available. FINDINGS: BONES / JOINT(S): No acute fracture or subluxation. No significant arthritis. There is no evidence of joint effusion. SOFT TISSUES: No significant abnormality. ADDITIONAL FINDINGS: None. IMPRESSION: No acute abnormality. Signer Name: Vaughn Faith MD Signed: 04/20/2019 3:48 PM Workstation Name: [id number]
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
== END 2019-04-20 16:37 | disposition home or self-care (01) ==
LOC: ED 15:10
DX: M25.521 Pain in right elbow (principal); I10 Essential (primary) hypertension; E11.9 Type 2 diabetes mellitus without complications; K21.9 Gastro-esophageal reflux disease without esophagitis; G43.909 Migraine, unspecified, not intractable, without status migrainosus; F32.9 Major depressive disorder, single episode, unspecified; Z90.710 Acquired absence of both cervix and uterus; Z98.51 Tubal ligation status; Z90.89 Acquired absence of other organs; Z90.49 Acquired absence of other specified parts of digestive tract; Z79.899 Other long term (current) drug therapy
CPT/HCPCS: 99283

== ENCOUNTER 2019-04-26 07:28 | Outpatient (CLI) | payer BC | END 2019-04-26 07:29 | disposition home or self-care (01) | LOC: LAB 07:28 | PROVIDERS: ATTEND Nurse Practitioner Gerontology | DX: R79.82 Elevated C-reactive protein (CRP) (principal) | CPT/HCPCS: 36415; 86140 ==

== ENCOUNTER 2019-06-02 07:20 | Outpatient (CLI) | payer BC ==
[2019-06-02 08:01] LABS: Chol/HDL Ratio 3.47 %
[2019-06-02 13:20] LABS: Creatinine,Urine 108.9 mg/dL (0.1-20.0)
== END 2019-06-02 07:21 | disposition home or self-care (01) ==
LOC: LAB 07:20
PROVIDERS: ATTEND Nurse Practitioner Gerontology
DX: E11.9 Type 2 diabetes mellitus without complications (principal); E78.5 Hyperlipidemia, unspecified; I10 Essential (primary) hypertension; K21.9 Gastro-esophageal reflux disease without esophagitis; F32.9 Major depressive disorder, single episode, unspecified; Z98.51 Tubal ligation status; Z90.710 Acquired absence of both cervix and uterus
CPT/HCPCS: 36415; 80061; 82043; 83036

== ENCOUNTER 2019-06-14 06:52 | Outpatient (CLI) | payer BC | END 2019-06-14 06:53 | disposition home or self-care (01) | LOC: ECHO 06:52 | PROVIDERS: ATTEND Internal Medicine Cardiovascular Disease | DX: R94.31 Abnormal electrocardiogram [ECG] [EKG] (principal); E66.01 Morbid (severe) obesity due to excess calories; I51.89 Other ill-defined heart diseases; I10 Essential (primary) hypertension; K21.9 Gastro-esophageal reflux disease without esophagitis; Z86.79 Personal history of other diseases of the circulatory system; Z90.710 Acquired absence of both cervix and uterus; Z90.89 Acquired absence of other organs | CPT/HCPCS: 93306 ==

== ENCOUNTER 2019-07-23 15:46 | Outpatient (CLI) | payer BC ==
[2019-07-23 16:04] LABS: Basophils # (Auto) 0.1 K/mm3 (0.0-0.1); Basophils % (Auto) 0.6 % (0.0-1.8); Eosinophils # (Auto) 0.3 K/mm3 (0.0-0.4); Eosinophils % (Auto) 3.4 % (0.0-4.3); Hematocrit 49.7 % (30.3-42.9); Hemoglobin 17.1 gm/dl (10.1-14.3); Lymphocytes # (Auto) 2.8 K/mm3 (1.2-5.4); Mean Corpuscular HGB Conc 35 % (30-34); Mean Corpuscular Volume 89 fl (79-97); Monocytes # (Auto) 0.8 K/mm3 (0.0-0.8); Monocytes % (Auto) 8.9 % (0.0-7.3); Platelet Count 282 K/mm3 (140-440); Red Blood Count 5.58 M/mm3 (3.65-5.03); Red Cell Distribution Width 14.1 % (13.2-15.2)
[2019-07-23 17:00] LABS: Bilirubin,Urine Negative (Negative); Blood,Urine Negative (Negative); Color,Urine Straw (Yellow)
[2019-07-23 17:01] LABS: Protein,Urine <15 mg/dL mg/dL (Negative); Urobilinogen,Urine < 2.0 mg/dL (<2.0)
[2019-07-23 18:08] LABS: Alanine Aminotransferase 93 units/L (7-56); BUN/Creatinine Ratio 19; Blood Urea Nitrogen 13 mg/dL (7-17); Calcium 9.7 mg/dL (8.4-10.2); Hemolysis Index 15
[2019-07-23 18:37] LABS: Bacteria,Urine 1+ /HPF (Negative); Mucus,Urine FEW /HPF
== END 2019-07-23 15:47 | disposition home or self-care (01) ==
LOC: LAB 15:46
PROVIDERS: ATTEND Internal Medicine
DX: Z00.01 Encounter for general adult medical examination with abnormal findings (principal); N39.0 Urinary tract infection, site not specified; K21.9 Gastro-esophageal reflux disease without esophagitis; G43.509 Persistent migraine aura without cerebral infarction, not intractable, without status migrainosus; I10 Essential (primary) hypertension; E66.9 Obesity, unspecified; Z90.710 Acquired absence of both cervix and uterus; Z90.49 Acquired absence of other specified parts of digestive tract
CPT/HCPCS: 36415; 80053; 81001; 85025

== ENCOUNTER 2019-08-13 17:17 | Emergency (ER) | payer BC, OTHER ==
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
[2019-08-13] MEDS ORDERED: IBUPROFEN 800 MG TAB PO ONE (18:31)
[2019-08-13] MEDS ORDERED: IBUPROFEN 600 MG TAB PO ONE (18:33)
[2019-08-13 20:14] VITALS: BP 136/83
[2019-08-13] MEDS ORDERED: HYDROcodone/ACETAMINOPHEN 5-325 MG TAB PO STA (21:23)
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
== END 2019-08-13 23:45 | disposition home or self-care (01) ==
LOC: ED 17:17
DX: S16.1XXA Strain of muscle, fascia and tendon at neck level, initial encounter (principal); S39.012A Strain of muscle, fascia and tendon of lower back, initial encounter; I10 Essential (primary) hypertension; E11.9 Type 2 diabetes mellitus without complications; K21.9 Gastro-esophageal reflux disease without esophagitis; F32.9 Major depressive disorder, single episode, unspecified; G43.909 Migraine, unspecified, not intractable, without status migrainosus; V49.49XA Driver injured in collision with other motor vehicles in traffic accident, initial encounter; Y93.89 Activity, other specified; Y92.89 Other specified places as the place of occurrence of the external cause; Y99.8 Other external cause status
CPT/HCPCS: 72040; 72100; 93005; 93010

== ENCOUNTER 2019-09-10 07:24 | Outpatient (CLI) | payer BC ==
[2019-09-10 07:39] LABS: Hematocrit 47.9 % (30.3-42.9); Hemoglobin 16.3 gm/dl (10.1-14.3); Mean Corpuscular HGB Conc 34 % (30-34); Mean Corpuscular Volume 90 fl (79-97); Platelet Count 235 K/mm3 (140-440); Red Cell Distribution Width 13.8 % (13.2-15.2)
[2019-09-10 08:04] LABS: Alanine Aminotransferase 90 units/L (7-56); Albumin 4.3 g/dL (3.9-5); BUN/Creatinine Ratio 22; Blood Urea Nitrogen 13 mg/dL (7-17); Calcium 9.3 mg/dL (8.4-10.2); Hemolysis Index 13
== END 2019-09-10 07:25 | disposition home or self-care (01) ==
LOC: LAB 07:24
PROVIDERS: ATTEND Internal Medicine Hematology & Oncology
DX: I74.9 Embolism and thrombosis of unspecified artery (principal); K21.9 Gastro-esophageal reflux disease without esophagitis; G43.909 Migraine, unspecified, not intractable, without status migrainosus
CPT/HCPCS: 36415; 80053; 85027; 86300

== ENCOUNTER 2019-11-18 15:33 | Outpatient (CLI) | payer BC ==
--- NOTE | 2019-11-18 16:21 | Mammography Report ---
DIGITAL SCREENING MAMMOGRAM WITH CAD, 11/18/2019 INDICATION: Routine screening mammography. Breast cancer survivor status post left partial mastectomy and bilateral reduction mammoplasty. TECHNIQUE: Digital bilateral 2D mammography was obtained in the craniocaudal and mediolateral obliq ue projections. This examination was interpreted with the benefit of Computer-Aided Detection analysi s. COMPARISON: 05/28/2019 FINDINGS: Breast Density: There are scattered areas of fibroglandular density. There is no evidence of dominant mass, suspicious calcifications or architectural distortion in eithe r breast. IMPRESSION: No mammographic evidence of malignancy. Follow up recommendation: Routine yearly BI-RADS Category 1: Negative. A "normal" or negative report should not discourage follow up or biopsy of a clinically significant f inding. A written summary of these findings will be mailed to the patient. The patient will be entered into a mammography reporting system which will generate a reminder letter for the patient's next appointmen t at the appropriate interval. The [employer] recommends yearly mammograms starting at age 40 and continuing as l monico as a woman is in good health. Breast MRI is recommended for women with an approximate 20-25% or greater lifetime risk of breast cancer, including women with a strong family history of breast or ova claudia cancer or who have been treated for Hodgkin's disease. Signer Name: Hermes Tabares MD Signed: 11/18/2019 4:16 PM Workstation Name: [id number]
== END 2019-11-18 15:34 | disposition home or self-care (01) ==
LOC: SPVWC 15:33
PROVIDERS: ATTEND Surgery
DX: C50.312 Malignant neoplasm of lower-inner quadrant of left female breast (principal); N64.89 Other specified disorders of breast
CPT/HCPCS: 77066

== ENCOUNTER 2019-12-07 14:50 | Outpatient (CLI) | payer BC ==
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
== END 2019-12-07 14:51 | disposition home or self-care (01) ==
LOC: XRAY 14:50
PROVIDERS: ATTEND Internal Medicine
DX: R05 Cough (principal)
CPT/HCPCS: 71046

== ENCOUNTER 2020-02-04 16:28 | Emergency (ER) | payer BC ==
[2020-02-04 16:58] LABS: Hematocrit 52.9 % (30.3-42.9); Hemoglobin 17.2 gm/dl (10.1-14.3); Mean Corpuscular HGB Conc 33 % (30-34); Mean Corpuscular Volume 92 fl (79-97); Platelet Count 316 K/mm3 (140-440); Red Blood Count 5.78 M/mm3 (3.65-5.03); Red Cell Distribution Width 14.1 % (13.2-15.2)
--- NOTE | 2020-02-04 17:13 | Emergency Department Report ---
ED Fever HPI - General Chief Complaint: Upper Respiratory Infection Stated Complaint: BOLA/HEADACHE Time Seen by Provider: 02/04/20 17:11 Source: patient Exam Limitations: no limitations - History of Present Illness Initial Comments: Ms. Ross is a 54-year-old female with history of diabetes mellitus breast cancer in remission who presents with shortness of breath chest pain cough headache sore throat for 2 weeks. Symptoms have worsened over the past 2 days. COVID-19 test results are pending. Her PCP Dr. Downs ordered chest x-ray. No sick contacts. 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 She lives with her daughter and boyfriend. All adults in the home are working in the public arena. She also has fever and chills. She denies change in taste or smell. Denies vomiting nausea or diarrhea. Nonproductive dry cough. She is very upset. "I am scared." Timing/Duration: other (2 weeks) Fever Severity/Quality: subjective Associated Symptoms: chest pain, cough, headache, shortness of breath, sore throat ED Review of Systems ROS: Stated complaint: BOLA/HEADACHE Other details as noted in HPI Comment: All other systems reviewed and negative Constitutional: chills, fever, malaise ENT: throat pain Respiratory: cough, shortness of breath Cardiovascular: chest pain Neurological: headache ED Past Medical Hx - Past Medical History Previous Medical History?: Yes Hx Hypertension: Yes Hx Diabetes: Yes Hx GERD: Yes Hx of Cancer: Yes (breast cancer) Hx Headaches / Migraines: Yes Hx Psychiatric Treatment: Yes (depression) Hx Asthma: No Additional medical history: Migraines - Surgical History Past Surgical History?: Yes Hx Cholecystectomy: Yes Hx Breast Surgery: Yes Additional Surgical History: Hysterectomy, tonilectomy, tubal ligation, bunion removal, bilateral lumpectomy with reconstruction. x 2 - Social History Smoking Status: Never Smoker Substance Use Type: None - Medications Home Medications: Home Medications Medication Instructions Recorded Confirmed Last Taken Type Aleve 1 tab PO PRN PRN 01/01/19 03/08/19 Unknown History Anastrozole 1 mg PO DAILY 01/01/19 03/09/19 03/08/19 History Cetirizine HCl 10 mg PO DAILY 01/01/19 03/08/19 Unknown History Clonidine 0.1 mg PO DAILY 01/01/19 03/09/1919 History Janumet 50-1,000 mg 1 tab PO BID 01/01/19 03/09/19 03/08/19 History Losartan 25 mg PO DAILY 01/01/19 03/08/19 03/08/19 History Omeprazole 1 tab PO DAILY 01/01/19 03/09/19 03/08/19 History LORazepam 1 mg PO DAILY 03/09/19 03/09/19 03/05/19 History Naproxen [Naprosyn] 500 mg PO BID PRN #20 tablet 04/20/19 Unknown Rx Ketorolac [Toradol] 10 mg PO Q6H PRN #15 tablet 08/13/19 Unknown Rx methOCARBAMOL [Robaxin] 750 mg PO Q8H PRN #21 tablet 08/13/19 Unknown Rx Hydrocodone/Chlorphen Polis(Nf 5 ml PO BID 7 Days #70 ml 02/04/20 Unknown Rx [Tussionex (Nf)] ED Physical Exam - General Limitations: No Limitations General appearance: alert, in no apparent distress, anxious, other (Tearful) - Head Head exam: Present: atraumatic, normocephalic - Eye Eye exam: Present: normal appearance - ENT ENT exam: Present: mucous membranes moist - Neck Neck exam: Present: normal inspection, full ROM - Respiratory Respiratory exam: Present: normal lung sounds bilaterally. Absent: respiratory distress, wheezes, rales, rhonchi - Cardiovascular Cardiovascular Exam: Present: regular rate, normal rhythm, normal heart sounds. Absent: systolic murmur, diastolic murmur, rubs, gallop - GI/Abdominal GI/Abdominal exam: Present: soft, normal bowel sounds. Absent: distended, tenderness, guarding, rebound - Extremities Exam Extremities exam: Present: normal inspection - Neurological Exam Neurological exam: Present: alert, oriented X3 - Psychiatric Psychiatric exam: Present: normal affect, anxious - Skin Skin exam: Present: warm, dry, intact, normal color. Absent: rash ED Course Vital Signs 02/04/20 16:31 Temperature 98.4 F Pulse Rate 119 H Respiratory 22 Rate Blood Pressure 174/105 O2 Sat by Pulse 99 Oximetry ED Medical Decision Making - Lab Data Result diagrams: 02/04/20 16:40 02/04/20 16:40 Laboratory Results - last 24 hr 02/04/20 02/04/2020 16:40 16:40 16:40 WBC 11.1 H RBC 5.78 H Hgb 17.2 H Hct 52.9 H MCV 92 MCH 30 MCHC 33 RDW 14.1 Plt Count 316 D-Dimer 294.03 H Sodium 139 Potassium 4.1 Chloride 101.4 Carbon Dioxide 21 L Anion Gap 21 BUN 13 Creatinine 0.6 L Estimated GFR > 60 BUN/Creatinine Ratio 22 Glucose 175 H Calcium 10.0 Ferritin Total Bilirubin 0.40 AST 78 H ALT 89 H Alkaline Phosphatase 137 H Lactate Dehydrogenase C-Reactive Protein Total Protein 8.1 Albumin 4.4 Albumin/Globulin Ratio 1.2 02/04/20 02/04/20 16:40 16:40 WBC RBC Hgb Hct MCV MCH MCHC RDW Plt Count D-Dimer Sodium Potassium Chloride Carbon Dioxide Anion Gap BUN Creatinine Estimated GFR BUN/Creatinine Ratio Glucose 177 H Calcium Ferritin 522.1 H Total Bilirubin AST ALT Alkaline Phosphatase Lactate Dehydrogenase 218 H C-Reactive Protein 1.20 Total Protein Albumin Albumin/Globulin Ratio - Radiology Data Radiology results: report reviewed Chest radiograph no acute findings according to radiology impression - Medical Decision Making Mrs. Hooks presents with symptoms of viral syndrome: fever, chills, chest pain, shortness of breath, cough, sore throat I suspect COVID 19 infection. patient is awaiting outpatient test result for COVID 19 Considering near normal level indicators: d-dimer, ferritin, CRP, LDH: I suspect mild infection, she understands return precautions Prior to discharge patient's tachycardia had resolved. Critical care attestation.: If time is entered above; I have spent that time in minutes in the direct care of this critically ill patient, excluding procedure time. ED Disposition Clinical Impression: Suspected 2019 novel coronavirus infection Disposition: DC-01 TO HOME OR SELFCARE Is pt being admited?: No Does the pt Need Aspirin: No Condition: Stable Instructions: COVID-19 Prescriptions: Hydrocodone/Chlorphen Polis(Nf [Tussionex (Nf)] 5 ml PO BID 7 Days #70 ml Referrals: XIOMARA DOWNS MD [Staff Physician] - 2-3 Days
[2020-02-04 17:20] LABS: Alanine Aminotransferase 89 units/L (7-56); Albumin 4.4 g/dL (3.9-5); BUN/Creatinine Ratio 22; Blood Urea Nitrogen 13 mg/dL (7-17); Hemolysis Index 25
[2020-02-04 17:23] LABS: C-Reactive Protein 1.2 mg/dL (0.00-1.30)
[2020-02-04] MEDS ORDERED: ACETAMINOPHEN W/CODEINE 300-30 MG TAB PO ONE (17:33)
--- NOTE | 2020-02-04 17:34 | XRay Report ---
CHEST 1 VIEW INDICATION / CLINICAL INFORMATION: MAIN: SOB; Pt c/o cough and shortness of breath x 2 weeks. Pt reports had COVID-19 test 2 days ago, but hasn't rec'd results. Pt reports was here for cxr from Dr. Downs. + labored breathing, incre ases with exertion.. COMPARISON: None available. FINDINGS: SUPPORT DEVICES: None. HEART / MEDIASTINUM: No significant abnormality. LUNGS / PLEURA: No significant pulmonary or pleural abnormality. No pneumothorax. ADDITIONAL FINDINGS: No significant additional findings. IMPRESSION: 1. No acute findings. Signer Name: Mika Ballard MD Signed: 02/04/2020 5:30 PM Workstation Name: [id number]
[2020-02-04 17:55] VITALS: BP 123/56
[2020-02-04 18:41] LABS: Total Cells Counted 100
[2020-02-04 18:42] LABS: Anisocytosis Few; Platelet Estimate Consistent w Auto; Stomatocytes Few
== END 2020-02-04 18:14 | disposition home or self-care (01) ==
LOC: ED 16:28
DX: Z20.828 Contact with and (suspected) exposure to other viral communicable diseases (principal); R07.89 Other chest pain; R05 Cough; J02.9 Acute pharyngitis, unspecified; I10 Essential (primary) hypertension; E11.9 Type 2 diabetes mellitus without complications; K21.9 Gastro-esophageal reflux disease without esophagitis; G43.909 Migraine, unspecified, not intractable, without status migrainosus; F32.9 Major depressive disorder, single episode, unspecified; Z90.89 Acquired absence of other organs; Z90.49 Acquired absence of other specified parts of digestive tract; Z98.890 Other specified postprocedural states; Z98.51 Tubal ligation status; Z90.710 Acquired absence of both cervix and uterus; Z79.899 Other long term (current) drug therapy
CPT/HCPCS: 36415; 71045; 80053; 82728; 82947; 83615; 84145; 85007; 85025; 85379; 86140

== ENCOUNTER 2020-03-07 07:18 | Outpatient (CLI) | payer BC ==
[2020-03-07 08:00] LABS: Hematocrit 49.1 % (30.3-42.9); Hemoglobin 16.6 gm/dl (10.1-14.3); Mean Corpuscular HGB Conc 34 % (30-34); Mean Corpuscular Volume 91 fl (79-97); Platelet Count 238 K/mm3 (140-440); Red Blood Count 5.41 M/mm3 (3.65-5.03); Red Cell Distribution Width 13.8 % (13.2-15.2)
[2020-03-07 08:10] LABS: Alanine Aminotransferase 119 units/L (7-56); Albumin 4.4 g/dL (3.9-5); BUN/Creatinine Ratio 17; Blood Urea Nitrogen 10 mg/dL (7-17); Calcium 9.3 mg/dL (8.4-10.2); Hemolysis Index 3
== END 2020-03-07 07:19 | disposition home or self-care (01) ==
LOC: LAB 07:18
PROVIDERS: ATTEND Internal Medicine Hematology & Oncology
DX: C50.912 Malignant neoplasm of unspecified site of left female breast (principal)
CPT/HCPCS: 36415; 80053; 85027; 86300

== ENCOUNTER 2020-05-18 08:00 | Outpatient (CLI) | payer BC ==
--- NOTE | 2020-05-18 08:57 | Ultrasound Report ---
US abdomen complete INDICATION / CLINICAL INFORMATION: K76.0Fatty (change of) liver, not elsewhere classified. COMPARISON: 07/08/2018 FINDINGS: Hepatic echogenicity is diffusely increased, consistent with diffuse fatty infiltration. No focal valerie er lesions. No biliary dilatation. Color Doppler imaging shows normal directional flow in the portal vein. Cholecystectomy. Common duct is normal in size. Spleen is mildly enlarged. Kidneys appear negative. A bdominal aorta is normal in size. Pancreas is grossly negative. IMPRESSION: 1. Hepatic steatosis. Borderline splenomegaly. No significant change since June 2018. Signer Name: Myron Hunt MD Signed: 05/18/2020 8:52 AM Workstation Name: [id number]
== END 2020-05-18 08:01 | disposition home or self-care (01) ==
LOC: US 08:00
PROVIDERS: ATTEND Internal Medicine
DX: K76.0 Fatty (change of) liver, not elsewhere classified (principal)
CPT/HCPCS: 76700

== ENCOUNTER 2020-06-12 07:15 | Outpatient (CLI) | payer BC ==
--- NOTE | 2020-06-12 07:58 | Cat Scan Report ---
CT HEAD WITHOUT CONTRAST INDICATION / CLINICAL INFORMATION: G43.909Migraine, unspecified, not intractable, without status keo . TECHNIQUE: Axial imaging performed from the skull apex through the skull base without the use of cont rast. Sagittal and coronal reformatted images. All CT scans at this location are performed using CT dose reduction for ALARA by means of automated exposure control. COMPARISON: 02/26/2018 FINDINGS: CEREBRAL PARENCHYMA: No significant abnormality. No acute territorial infarct. HEMORRHAGE: None. EXTRA-AXIAL SPACES: Normal in size and morphology for the patient's age. VENTRICULAR SYSTEM: Normal in size and morphology for the patient's age. MIDLINE SHIFT OR HERNIATION: None. CEREBELLUM / BRAINSTEM: No significant abnormality. CALVARIUM: No significant abnormality. ORBITS: Normal as visualized. PARANASAL SINUSES / MASTOID AIR CELLS: Normal as visualized. SOFT TISSUES of HEAD: No significant abnormality. ADDITIONAL FINDINGS: None. IMPRESSION: Cranial CT scan within normal limits. No significant change since 02/26/2019. Signer Name: Walter Baird Jr, MD Signed: 06/12/2020 7:53 AM Workstation Name: [id number]
== END 2020-06-12 07:16 | disposition home or self-care (01) ==
LOC: CT 07:15
PROVIDERS: ATTEND Internal Medicine
DX: G43.909 Migraine, unspecified, not intractable, without status migrainosus (principal)
CPT/HCPCS: 70450

== ENCOUNTER 2020-07-18 15:45 | Outpatient (CLI) | payer BC ==
--- NOTE | 2020-07-18 16:20 | XRay Report ---
RIGHT FOOT 3 VIEWS INDICATION / CLINICAL INFORMATION: RIGHT FOOT PAIN. COMPARISON: None available. FINDINGS: Advanced degenerative change in the first metatarsophalangeal joint. Mild degenerative change in the midfoot. No other significant skeletal abnormality Signer Name: Gilbert Collazo MD FACTosha Signed: 07/18/2020 4:16 PM Workstation Name: [id number]
== END 2020-07-18 15:46 | disposition home or self-care (01) ==
LOC: XRAY 15:45
PROVIDERS: ATTEND Internal Medicine
DX: M19.071 Primary osteoarthritis, right ankle and foot (principal); M18.11 Unilateral primary osteoarthritis of first carpometacarpal joint, right hand

== ENCOUNTER 2020-08-07 07:37 | Outpatient (CLI) | payer BC ==
[2020-08-07 08:06] LABS: Bacteria,Urine 1+ /HPF (Negative); Bilirubin,Urine NEG (Negative); Blood,Urine SM (Negative); Color,Urine Yellow (Yellow); Protein,Urine <15 mg/dL mg/dL (Negative); Urobilinogen,Urine < 2.0 mg/dL (<2.0)
[2020-08-07 08:33] LABS: Alanine Aminotransferase 128 units/L (7-56); Albumin 4.2 g/dL (3.9-5); Blood Urea Nitrogen 14 mg/dL (7-17); Calcium 9.5 mg/dL (8.4-10.2); Chol/HDL Ratio 3.16 %; HDL Cholesterol 65 mg/dL (40-59); Hemolysis Index 4; LDL Cholesterol,Direct 131 mg/dL (50-130)
[2020-08-07 08:34] LABS: BUN/Creatinine Ratio 23; Bilirubin,Direct < 0.2 mg/dL (0-0.2)
== END 2020-08-07 07:38 | disposition home or self-care (01) ==
LOC: LAB 07:37
PROVIDERS: ATTEND Internal Medicine
DX: E78.5 Hyperlipidemia, unspecified (principal); R94.5 Abnormal results of liver function studies; E56.9 Vitamin deficiency, unspecified
CPT/HCPCS: 36415; 80048; 80061; 80076; 81001; 82607; 87076; 87086; 87186

== ENCOUNTER 2020-08-16 07:48 | Outpatient (CLI) | payer BC ==
[2020-08-16 08:39] LABS: Blood Urea Nitrogen 10 mg/dL (7-17)
--- NOTE | 2020-08-16 09:36 | XRay Report ---
RIGHT FOOT 3 VIEWS INDICATION / CLINICAL INFORMATION: M25.70 COMPARISON: 07/18/2026 FINDINGS: BONES / JOINT(S): No acute fracture or subluxation. There is degenerative change in the great toe MTP joint. There is no periosteal reaction. No erosions are seen. There is stable degenerative change i n the midfoot. SOFT TISSUES: No significant abnormality. ADDITIONAL FINDINGS: None. Signer Name: Warren Hunter MD Signed: 08/16/2020 9:35 AM Workstation Name: [id number]
--- NOTE | 2020-08-16 09:52 | Cat Scan Report ---
CT OF THE ABDOMEN AND PELVIS WITH INTRAVENOUS CONTRAST INDICATION / CLINICAL INFORMATION: Abdominal pain. TECHNIQUE: The patient received 100 cc Omnipaque [address] scans at this location are performed using CT dose reduction for ALARA by means of automated exposure control. COMPARISON: Complete abdominal ultrasound 05/18/2020. FINDINGS: ABDOMEN: The gallbladder is surgically absent. There is moderate diffuse decreased density of the valerie er parenchyma compared to the spleen without focal lesion. There is a 1.8 cm low-density lesion in th e medial aspect of the spleen which measures approximately 52 Hounsfield units. There is a tiny acces sanjay spleen anteriorly. The bile ducts, pancreas, adrenal glands, kidneys and bowel demonstrate no si gnificant abnormality. No adenopathy is seen. There is mild bibasilar dependent atelectasis. PELVIS: The distal ureters and urinary bladder are normal. There are small periureteral phleboliths b ilaterally. The uterus and ovaries are not identified. A normal appendix is present and there is no e vidence of diverticulitis. No abnormal mass or fluid collection is seen. There is mild broad-based di astases of the rectus sheath at the level of the umbilicus with a small fat-containing periumbilical hernia in this region without complication. There is mild lower lumbar spondylosis. No acute osseous abnormality is seen. IMPRESSION: 1. Moderate diffuse fatty infiltration of the liver. 2. 1.8 cm incidental splenic lesion is of questionable clinical significance. 3. Small fat-containing periumbilical hernia without complication. Signer Name: Vaughn Faith MD Signed: 08/16/2020 9:51 AM Workstation Name: [id number]
== END 2020-08-16 07:49 | disposition home or self-care (01) ==
LOC: CT 07:48
PROVIDERS: ATTEND Internal Medicine
DX: K76.0 Fatty (change of) liver, not elsewhere classified (principal); K42.9 Umbilical hernia without obstruction or gangrene; M19.071 Primary osteoarthritis, right ankle and foot; J98.11 Atelectasis; M47.816 Spondylosis without myelopathy or radiculopathy, lumbar region; Z90.49 Acquired absence of other specified parts of digestive tract
CPT/HCPCS: 36415; 73630; 74177; 82565; 84520; Q9967

== ENCOUNTER 2020-10-03 15:07 | Outpatient (CLI) | payer BC ==
--- NOTE | 2020-10-03 15:56 | Mammography Report ---
DEXA BONE DENSITY SCAN INDICATION / CLINICAL INFORMATION: OSTEOPOROSIS/MENOPAUSAL/POSTMENOPAUSAL. 54 years Female COMPARISON: 09/18/2018 LUMBAR SPINE, L1-L4: - Bone mineral density (BMD) = 1.076 g/cm2. - T-score = 0.3 - Z-score = 1.3 Change (%) since most recent prior (if available): -6.2 LEFT HIP, TOTAL : - Bone mineral density (BMD) = 1.012 g/cm2. - T-score = 0.6 - Z-score = 1.2 Change (%) since most recent prior (if available): 3.4 IMPRESSION: 1. WHO Classification: Normal bone density. Fracture Risk: Not Increased. BMD Reporting Guidelines (ISCD, 2015) BMD Reporting in Postmenopausal Women and in Men Age 50 and Older * T-scores are preferred. * The WHO densitometric classification is applicable. BMD Reporting in Females Prior to Menopause and in Males Younger Than Age 50 * Z-scores, not T-scores, are preferred. This is particularly important in children. * A Z-score of -2.0 or lower is defined as below the expected range for age, and a Z-score above -2. 0 is within the expected range for age. * Osteoporosis cannot be diagnosed in men under age 50 on the basis of BMD alone. * The WHO diagnostic criteria may be applied to women in the menopausal transition. http://www.iscd.org/official-positions/2663-palv-ewgmmtvr-positions-adult/ Signer Name: Tahir Bell MD Signed: 10/03/2020 3:52 PM Workstation Name: [id number]
== END 2020-10-03 15:08 | disposition home or self-care (01) ==
LOC: SPVWC 15:07
PROVIDERS: ATTEND Internal Medicine Hematology & Oncology
DX: C50.912 Malignant neoplasm of unspecified site of left female breast (principal); C50.911 Malignant neoplasm of unspecified site of right female breast; R16.1 Splenomegaly, not elsewhere classified
CPT/HCPCS: 77080

== ENCOUNTER 2020-11-10 07:40 | Emergency (ER) | payer BC ==
[2020-11-10 07:57] VITALS: BP 165/64
[2020-11-10] MEDS ORDERED: KETOROLAC 60 MG/2 ML INJ IM ONE (08:08)
[2020-11-10] MEDS ORDERED: CYCLOBENZAPRINE 10 MG TAB PO ONE (08:08)
--- NOTE | 2020-11-10 08:22 | Emergency Department Report ---
ED Back Pain/Injury HPI - General Chief Complaint: Back Pain/Injury Stated Complaint: BACK PAIN Time Seen by Provider: 11/10/20 08:04 Source: patient Limitations: No Limitations - History of Present Illness Initial Comments: Patient is a 55-year-old female presents emergency room with complaints of low back pain that began 2 days ago. Patient states her pain is worse with certain movements. She states that she has a history of herniated disc and states that she was pushing and pulling some furniture and exacerbated her back. She denies any fall or significant injury. She states that she does have a history of sciatica and occasionally the pain will run down her left leg. She states that she believes she has exacerbated her sciatica as well. She denies any fever, n ausea, vomiting, diarrhea, urinary symptoms, numbness, weakness, bowel or bladder incontinence, saddle numbness, any other symptoms. She has a past medical history of DM and breast cancer and is currently on a oral chemotherapy regimen. No allergies to medications. - Related Data Home Medications Medication Instructions Recorded Confirmed Last Taken Aleve 1 tab PO PRN PRN 01/01/19 03/08/19 Unknown Anastrozole 1 mg PO DAILY 01/01/19 03/09/19 03/08/19 Cetirizine HCl 10 mg PO DAILY 01/01/19 03/08/19 Unknown Clonidine 0.1 mg PO DAILY 01/01/19 03/09/19 03/06/19 Janumet 50-1,000 mg 1 tab PO BID 01/01/19 03/09/19 03/08/19 Losartan 25 mg PO DAILY 01/01/19 03/08/19 03/08/19 Omeprazole 1 tab PO DAILY 01/01/19 03/09/19 03/08/19 LORazepam 1 mg PO DAILY 03/09/19 03/09/19 03/05/19 Previous Rx's Medication Instructions Recorded Last Taken Type Naproxen [Naprosyn] 500 mg PO BID PRN #20 tablet 04/20/19 Unknown Rx Ketorolac [Toradol] 10 mg PO Q6H PRN #15 tablet 08/13/19 Unknown Rx methOCARBAMOL [Robaxin] 750 mg PO Q8H PRN #21 tablet 08/13/19 Unknown Rx Hydrocodone/Chlorphen Polis(Nf 5 ml PO BID 7 Days #70 ml 02/04/20 Unknown Rx [Tussionex (Nf)] Ibuprofen [Motrin] 800 mg PO Q8HR PRN #30 tablet 03/11/20 Unknown Rx tiZANidine [Zanaflex 4mg TAB] 4 mg PO Q8H PRN #21 tablet 03/11/20 Unknown Rx Menthol/Camphor [[place] 1 applicatio TP BID #18 oint...g. 11/10/20 Unknown Rx Ointment] Naproxen [EC-Naprosyn] 500 mg PO BID PRN #14 tablet.dr 11/10/20 Unknown Rx methOCARBAMOL [Robaxin TAB] 500 mg PO BID PRN #14 tab 11/10/20 Unknown Rx traMADoL [Ultram 50 MG tab] 50 mg PO Q6HR PRN #10 tablet 11/10/20 Unknown Rx Allergies Allergy/AdvReac Type Severity Reaction Status Date / Time No Known Allergies Allergy Verified 11/10/20 07:49 ED Review of Systems ROS: Stated complaint: BACK PAIN Other details as noted in HPI Comment: All other systems reviewed and negative ED Past Medical Hx - Past Medical History Hx Hypertension: Yes Hx Diabetes: Yes Hx GERD: Yes Hx Headaches / Migraines: Yes Hx Psychiatric Treatment: Yes (depression) Hx Asthma: No Additional medical history: Migraines - Surgical History Hx Cholecystectomy: Yes Hx Breast Surgery: Yes Additional Surgical History: Hysterectomy, tonilectomy, tubal ligation, bunion removal, bilateral lumpectomy with reconstruction. x 2 - Social History Smoking Status: Never Smoker Substance Use Type: None - Medications Home Medications: Home Medications Medication Instructions Recorded Confirmed Last Taken Type Aleve 1 tab PO PRN PRN 01/01/19 03/08/19 Unknown History Anastrozole 1 mg PO DAILY 01/01/19 03/09/19 03/08/19 History Cetirizine HCl 10 mg PO DAILY 01/01/19 03/08/19 Unknown History Clonidine 0.1 mg PO DAILY 01/01/19 03/09/19 03/06/19 History Janumet 50-1,000 mg 1 tab PO BID 01/01/19 03/09/19 03/08/19 History Losartan 25 mg PO DAILY 01/01/19 03/08/19 03/08/19 History Omeprazole 1 tab PO DAILY 0403/09/19 03/08/19 History LORazepam 1 mg PO DAILY 03/09/19 03/09/19 03/05/19 History Naproxen [Naprosyn] 500 mg PO BID PRN #20 tablet 04/20/19 Unknown Rx Ketorolac [Toradol] 10 mg PO Q6H PRN #15 tablet 08/13/19 Unknown Rx methOCARBAMOL [Robaxin] 750 mg PO Q8H PRN #21 tablet 08/13/19 Unknown Rx Hydrocodone/Chlorphen Polis(Nf 5 ml PO BID 7 Days #70 ml 02/04/20 Unknown Rx [Tussionex (Nf)] Ibuprofen [Motrin] 800 mg PO Q8HR PRN #30 tablet 03/11/20 Unknown Rx tiZANidine [Zanaflex 4mg TAB] 4 mg PO Q8H PRN #21 tablet 03/11/20 Unknown Rx Menthol/Camphor [[place] 1 applicatio TP BID #18 oint...g. 11/10/20 Unknown Rx Ointment] Naproxen [EC-Naprosyn] 500 mg PO BID PRN #14 tablet. 11/10/20 Unknown Rx methOCARBAMOL [Robaxin TAB] 500 mg PO BID PRN #14 tab 11/10/20 Unknown Rx traMADoL [Ultram 50 MG tab] 50 mg PO Q6HR PRN #10 tablet 11/10/20 Unknown Rx ED Physical Exam - General Limitations: No Limitations General appearance: alert, in no apparent distress - Head Head exam: Present: atraumatic, normocephalic - Eye Eye exam: Present: normal appearance - ENT ENT exam: Present: mucous membranes moist - Neck Neck exam: Present: normal inspection, full ROM. Absent: tenderness - Respiratory Respiratory exam: Present: normal lung sounds bilaterally. Absent: respiratory distress, wheezes, rales, stridor, chest wall tenderness, accessory muscle use, decreased breath sounds, prolonged expiratory - Cardiovascular Cardiovascular Exam: Present: regular rate, normal rhythm, normal heart sounds. Absent: systolic murmur, diastolic murmur, rubs, gallop - Back Exam Back exam: Present: normal inspection, full ROM, paraspinal tenderness (left sided lumbar paraspinal muscular ttp, no midline C-spine, T-spine or L-spine ttp, no step offs, no deformities). Absent: vertebral tenderness - Neurological Exam Neurological exam: Present: alert, oriented X3, CN II-XII intact, normal gait. Absent: motor sensory deficit - Psychiatric Psychiatric exam: Present: normal affect, normal mood - Skin Skin exam: Present: warm, dry, intact ED Course Vital Signs 11/10/20 07:55 Temperature 98.3 F Pulse Rate 68 Respiratory 20 Rate Blood Pressure 165/64 O2 Sat by Pulse 95 Oximetry ED Medical Decision Making - Radiology Data Radiology results: report reviewed Ordering Physician: VANIA KANG Date of Service: 11/10/20 Procedure(s): XR spine lumbosacral 2-3V Accession Number(s): [id number] cc: VANIA KANG Fluoro Time In Minutes: LUMBAR SPINE 3 VIEWS INDICATION: low back pain COMPARISON: CT abdomen/pelvis 08/16/2020. FINDINGS: There is partial sacralization of L5. No acute, displaced fracture is seen. There is minimal anterolisthesis of L4 on L5 which is likely due to facet arthropathy. Disc space height is maintained. No significant discogenic degenerative change. CONCLUSION: 1. No acute findings. Signer Name: Mitchel Tavarez MD Signed: 11/10/2020 8:46 AM Workstation Name: [id number] Transcribed By: SW Dictated By: Mitchel Tavarez MD Electronically Authenticated By: Mitchel Tavarez MD Signed Date/Time: 11/10/2046 DD/ 2 TD/TT: - Medical Decision Making Patient is a 55-year-old female presents emergency room with complaints of low back pain that began 2 days ago. Patient states her pain is worse with certain movements. She states that she has a history of herniated disc and states that she was pushing and pulling some furniture and exacerbated her back. She denies any fall or significant injury. She states that she does have a history of sciatica and occasionally the pain will run down her left leg. She states that she believes she has exacerbated her sciatica as well. She denies any fever, nausea, vomiting, diarrhea, urinary symptoms, numbness, weakness, bowel or bladder incontinence, saddle numbness, any other symptoms. She has a past medical history of DM and breast cancer and is currently on a oral chemotherapy regimen. No allergies to medications. VSS. on exam: left sided lumbar paraspinal muscular ttp, no midline C-spine, T-spine or L-spine ttp, no step offs, no deformities, no focal neuro deficits. Due to her history of herniated disc and that she is on a oral chemotherapy regimen, x-ray ordered to rule out any abnormalities. XR lumbar spine: 1. No acute findings. Symptoms appear most consistent with muscle strain secondary to her moving heavy furniture. She has no neuro deficits, no saddle numbness, not suspect conus medullaris or cauda equina. Her symptoms and examination do not appear consistent with aortic dissection. Patient given Toradol IM and Flexeril in the emergency department as she did not drive and her symptoms improved and she is feeling much better and ready to go home. Patient given prescription for Robaxin, naproxen, tramadol. Advised patient to please take medication as prescribed. Do not drive or operate machinery while taking severe pain medication or muscle relaxer Robaxin. May use ice pack, heating pad, rest, Epsom salt bath. Follow-up with a primary care doctor. Follow-up with orthopedic/spine doctor. Return to emergency room for any new or worsening symptoms. Critical care attestation.: If time is entered above; I have spent that time in minutes in the direct care of this critically ill patient, excluding procedure time. ED Disposition Clinical Impression: Low back pain Qualifiers: Chronicity: acute Back pain laterality: left Sciatica presence: with sciatica Sciatica laterality: sciatica of left side Qualified Code(s): M54.42 - Lumbago with sciatica, left side Disposition: TO HOME OR SELFCARE Is pt being admited?: No Does the pt Need Aspirin: No Condition: Stable Instructions: Muscle Strain, [id number], Sciatica Additional Instructions: please take medication as prescribed. Do not drive or operate machinery while taking severe pain medication or muscle relaxer Robaxin. May use ice pack, heating pad, rest, Epsom salt bath. Follow-up with a primary care doctor. Follow-up with orthopedic/spine doctor. Return to emergency room for any new or worsening symptoms. Prescriptions: Naproxen [EC-Naprosyn] 500 mg PO BID PRN #14 tablet. PRN Reason: pain methOCARBAMOL [Robaxin TAB] 500 mg PO BID PRN #14 tab PRN Reason: pain Menthol/Camphor [[place] Ointment] 1 applicatio TP BID #18 oint...g. traMADoL [Ultram 50 MG tab] 50 mg PO Q6HR PRN #10 tablet PRN Reason: Pain , Severe (7-10) Referrals: PRIMARY CAREMD [Primary Care Provider] - 2-3 Days [facility] [Provider Group] - 2-3 Days ANTWAN SALDANA II, MD [Staff Physician] - 2-3 Days Time of Disposition: 08:54 Print Language: DANISH
--- NOTE | 2020-11-10 08:50 | XRay Report ---
LUMBAR SPINE 3 VIEWS INDICATION: low back pain COMPARISON: CT abdomen/pelvis 08/16/2020. FINDINGS: There is partial sacralization of L5. No acute, displaced fracture is seen. There is minimal anterolisthesis of L4 on L5 which is likely due to facet arthropathy. Disc space height is maintained. No significant discogenic degenerative change. CONCLUSION: 1. No acute findings. Signer Name: Mitchel Tavarez MD Signed: 11/10/2020 8:46 AM Workstation Name: [id number]
== END 2020-11-10 09:00 | disposition home or self-care (01) ==
LOC: ED 07:40
DX: M54.5 Low back pain (principal); I10 Essential (primary) hypertension; E11.9 Type 2 diabetes mellitus without complications; K21.9 Gastro-esophageal reflux disease without esophagitis; F32.9 Major depressive disorder, single episode, unspecified; G43.909 Migraine, unspecified, not intractable, without status migrainosus; Z90.710 Acquired absence of both cervix and uterus; Z98.51 Tubal ligation status; Z98.890 Other specified postprocedural states; Z79.899 Other long term (current) drug therapy
CPT/HCPCS: 72100; 96372; 99283; J1885

== ENCOUNTER 2020-11-15 13:47 | Outpatient (CLI) | payer BC ==
[2020-11-15 14:30] LABS: Blood Urea Nitrogen 12 mg/dL (7-17)
--- NOTE | 2020-11-15 15:23 | Cat Scan Report ---
CT ABDOMEN AND PELVIS WITH IV CONTRAST INDICATION: Abdominal pain. History of breast cancer.. COMPARISON: CT 08/16/2020. TECHNIQUE: All CT scans at this facility use dose modulation, automated exposure control, iterative reconstructi on or weight based dosing, when appropriate, to reduce radiation dose to as low as reasonably achieva ble. FINDINGS: Lung Bases: No significant abnormality. Skeletal System: No acute abnormality. ABDOMEN: Liver: Steatosis. Gallbladder: Removed. Bile Ducts: No significant abnormality. Pancreas: No significant abnormality. Spleen: There is a stable hypodensity in the medial spleen on series 2 image 45. Adrenals: No significant abnormality. Right Kidney: No significant abnormality. Left Kidney: No significant abnormality. Upper GI tract: No significant abnormality. Lymph Nodes: No significant adenopathy. Aorta: No significant abnormality. Additional Findings: Midline rectus diastases with tiny fat-containing hernia are again noted at the umbilicus. PELVIS: Colon: No acute abnormality. Diverticulosis is noted. Urinary Bladder and Distal Ureters: No significant abnormality. Appendix: No significant abnormality. Lymph Nodes: No significant adenopathy. Additional Findings: None. IMPRESSION: 1. No acute process in the abdomen or pelvis. 2. Incidental findings, as above. Signer Name: Mitchel Tavarez MD Signed: 11/15/2020 3:18 PM Workstation Name: [email or web address]
== END 2020-11-15 13:48 | disposition home or self-care (01) ==
LOC: CT 13:47
PROVIDERS: ATTEND Internal Medicine Hematology & Oncology
DX: K76.0 Fatty (change of) liver, not elsewhere classified (principal); C50.911 Malignant neoplasm of unspecified site of right female breast; C50.912 Malignant neoplasm of unspecified site of left female breast; R16.1 Splenomegaly, not elsewhere classified; K42.9 Umbilical hernia without obstruction or gangrene; K57.30 Diverticulosis of large intestine without perforation or abscess without bleeding
CPT/HCPCS: 36415; 74177; 82565; 84520; Q9967

== ENCOUNTER 2020-11-24 14:39 | Outpatient (CLI) | payer BC | END 2020-11-24 14:40 | disposition home or self-care (01) | LOC: SPVWC 14:39 | DX: Z12.31 Encounter for screening mammogram for malignant neoplasm of breast (principal) | CPT/HCPCS: 77063; 77067 ==

== ENCOUNTER 2021-01-01 07:36 | Outpatient (CLI) | payer BC ==
[2021-01-01 08:01] LABS: Hematocrit 45.7 % (30.3-42.9); Hemoglobin 15.3 gm/dl (10.1-14.3); Mean Corpuscular HGB Conc 34 % (30-34); Mean Corpuscular Volume 89 fl (79-97); Platelet Count 251 K/mm3 (140-440); Red Blood Count 5.14 M/mm3 (3.65-5.03); Red Cell Distribution Width 13.9 % (13.2-15.2)
[2021-01-01 08:20] LABS: Alanine Aminotransferase 89 units/L (7-56); Albumin 3.9 g/dL (3.9-5); Blood Urea Nitrogen 12 mg/dL (7-17); Calcium 8.8 mg/dL (8.4-10.2); Hemolysis Index 1
[2021-01-01 08:33] LABS: BUN/Creatinine Ratio 24
== END 2021-01-01 07:37 | disposition home or self-care (01) ==
LOC: LAB 07:36
PROVIDERS: ATTEND Internal Medicine Hematology & Oncology
DX: C50.911 Malignant neoplasm of unspecified site of right female breast (principal)
CPT/HCPCS: 36415; 80053; 85027; 86300

== ENCOUNTER 2021-01-26 10:04 | Outpatient (CLI) | payer BC ==
--- NOTE | 2021-01-26 11:02 | XRay Report ---
LEFT WRIST 3 VIEWS INDICATION / CLINICAL INFORMATION: RADIAL STYLOID TENOSYNOVITIS COMPARISON: None available. FINDINGS: BONES and JOINT(S): No acute fracture or subluxation. No significant arthritis. SOFT TISSUES: No significant abnormality. ADDITIONAL FINDINGS: None. IMPRESSION: No significant abnormality of the left wrist. Signer Name: Shine Jones MD Signed: 01/26/2021 10:58 AM Workstation Name: [id number]
== END 2021-01-26 10:05 | disposition home or self-care (01) ==
LOC: XRAY 10:04
PROVIDERS: ATTEND Internal Medicine
DX: M65.4 Radial styloid tenosynovitis [de Quervain] (principal)

== ENCOUNTER 2021-03-21 07:55 | Outpatient (CLI) | payer BC ==
[2021-03-21 08:24] LABS: Basophils # (Auto) 0.1 K/mm3 (0.0-0.1); Basophils % (Auto) 0.6 % (0.0-1.8); Eosinophils # (Auto) 0.3 K/mm3 (0.0-0.4); Eosinophils % (Auto) 2.9 % (0.0-4.3); Hemoglobin 16.9 gm/dl (10.1-14.3); Lymphocytes # (Auto) 2.1 K/mm3 (1.2-5.4); Lymphocytes % (Auto) 23.1 % (13.4-35.0); Mean Corpuscular HGB Conc 34 % (30-34); Mean Corpuscular Volume 91 fl (79-97); Monocytes # (Auto) 0.7 K/mm3 (0.0-0.8); Monocytes % (Auto) 7.8 % (0.0-7.3); Platelet Count 259 K/mm3 (140-440); Red Blood Count 5.49 M/mm3 (3.65-5.03); Red Cell Distribution Width 14.3 % (13.2-15.2)
[2021-03-21 08:49] LABS: Alanine Aminotransferase 100 units/L (7-56); Albumin 4.6 g/dL (3.9-5); Blood Urea Nitrogen 17 mg/dL (7-17); Calcium 10.1 mg/dL (8.4-10.2); Chol/HDL Ratio 3.86 %; HDL Cholesterol 52 mg/dL (40-59); Hemolysis Index 4; LDL Cholesterol,Direct 145 mg/dL (50-130)
[2021-03-21 08:55] LABS: BUN/Creatinine Ratio 28
[2021-03-24 15:09] LABS: Vitamin D, 25-OH, D2 20 ng/mL
== END 2021-03-21 07:56 | disposition home or self-care (01) ==
LOC: LAB 07:55
PROVIDERS: ATTEND Internal Medicine
DX: E11.9 Type 2 diabetes mellitus without complications (principal); E78.5 Hyperlipidemia, unspecified; K76.0 Fatty (change of) liver, not elsewhere classified; E55.9 Vitamin D deficiency, unspecified
CPT/HCPCS: 36415; 80053; 80061; 82306; 83036; 85025

== ENCOUNTER 2021-06-19 10:21 | Outpatient (CLI) | payer BC ==
--- NOTE | 2021-06-19 11:33 | XRay Report ---
CHEST 1 VIEW INDICATION: U07.1/ COVID 19. COMPARISON: 02/04/2020 FINDINGS: Support devices: None. Heart: Within normal limits. Lungs/Pleura: Scattered bilateral lung opacities have developed. No consolidation, pleural effusion o r pneumothorax. Additional findings: None. IMPRESSION: New bilateral lung opacities have developed concerning for atypical pneumonia or viral infection. Signer Name: Walter aBird Jr, MD Signed: 06/19/2021 11:28 AM Workstation Name: [id number]
== END 2021-06-19 10:22 | disposition home or self-care (01) ==
LOC: XRAY 10:21
PROVIDERS: ATTEND Internal Medicine
DX: J18.9 Pneumonia, unspecified organism (principal); U07.1 COVID-19
CPT/HCPCS: 71046

== ENCOUNTER 2021-06-20 16:29 | Inpatient (IN) | payer BC ==
--- NOTE | 2021-06-20 16:51 | History and Physical Report ---
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 Patient apparently tested positive for Covid on May 21 and since then has been symptomatic with her cough and shortness of breath and loss of taste. On her checkup with her PCP-patient had bilateral pneumonia and slightly hypoxic-hence direct admission for respiratory failure and bilateral pneumonia and possible Covid pneumonia. Patient continues to have cough and shortness of breath for the last 4 weeks. More so for the last 3 to 4 days. Past History Past Medical History: diabetes, hypertension, other (Migraine) Past Surgical History: No surgical history Social history: no significant social history, lives with family Family history: hypertension Medications and Allergies Allergies Allergy/AdvReac Type Severity Reaction Status Date / Time No Known Allergies Allergy Verified 11/10/20 07:49 Home Medications Medication Instructions Recorded Confirmed Last Taken Type Aleve 1 tab PO PRN PRN 01/01/19 06/21/21 06/20/21 History Anastrozole 1 mg PO DAILY 01/01/19 06/21/21 06/20/21 History Cetirizine HCl 10 mg PO DAILY 01/01/19 06/21/21 06/20/21 History Clonidine 0.1 mg PO DAILY 01/01/19 06/21/21 06/20/21 History Janumet 50-1,000 mg 1 tab PO BID 01/01/19 06/21/21 06/20/21 History Losartan 25 mg PO DAILY 01/01/19 06/21/21 06/20/21 History Omeprazole 1 tab PO DAILY 01/01/19 06/21/21 06/20/21 History LORazepam 1 mg PO DAILY 03/09/19 06/21/21 06/20/21 History Naproxen [Naprosyn] 500 mg PO BID PRN #20 tablet 04/20/19 06/21/21 06/20/21 Rx Ketorolac [Toradol] 10 mg PO Q6H PRN #15 tablet 08/13/19 06/21/21 06/20/21 Rx methOCARBAMOL [Robaxin] 750 mg PO Q8H PRN #21 tablet 08/13/19 06/21/21 06/20/21 Rx Hydrocodone/Chlorphen Polis(Nf 5 ml PO BID 7 Days #70 ml 02/04/20 06/21/21 06/20/21 Rx [Tussionex (Nf)] Ibuprofen [Motrin] 800 mg PO Q8HR PRN #30 tablet 03/11/20 06/21/21 06/20/21 Rx tiZANidine [Zanaflex 4mg TAB] 4 mg PO Q8H PRN #21 tablet 03/11/20 06/21/21 06/20/21 Rx Menthol/Camphor [Ledyard Jones 1 applicatio TP BID #18 oint...g. 11/10/20 06/21/21 06/20/21 Rx Ointment] Naproxen [EC-Naprosyn] 500 mg PO BID PRN #14 tablet. 11/10/20 06/21/21 06/20/21 Rx methOCARBAMOL [Robaxin TAB] 500 mg PO BID PRN #14 tab 11/10/20 06/21/21 06/20/21 Rx traMADoL [Ultram 50 MG tab] 50 mg PO Q6HR PRN #10 tablet 11/10/20 06/21/21 06/20/21 Rx Review of Systems All systems: negative Constitutional: fever, chills, fatigue, no weight loss, no weight gain Cardiovascular: shortness of breath, dyspnea on exertion Respiratory: cough with sputum, shortness of breath, dyspnea on exertion, congestion Exam - Constitutional General appearance: Present: no acute distress, well-nourished - EENT Eyes: Present: PERRL ENT: hearing intact, clear oral mucosa - Neck Neck: Present: supple, normal ROM - Respiratory Respiratory effort: normal Respiratory: bilateral: CTA - Cardiovascular Heart rate: 78 Rhythm: regular Heart Sounds: Present: S1 & S2. Absent: rub, click - Extremities Extremities: no ischemia, pulses intact, pulses symmetrical, No edema Peripheral Pulses: within normal limits - Abdominal General gastrointestinal: Present: soft, non-tender, non-distended, normal bowel sounds Female genitourinary: Present: normal - Integumentary Integumentary: Present: clear, warm, dry - Musculoskeletal Musculoskeletal: gait normal, strength equal bilaterally - Psychiatric Psychiatric: appropriate mood/affect, intact judgment & insight - Neurologic Neurologic: CNII-XII intact, moves all extremities - Allied Health Allied health notes reviewed: nursing, case management Results - Labs CBC & Chem 7: 06/20/21 21:05 06/20/21 21:05 - Imaging and Cardiology Chest x-ray: report reviewed Imaging and Cardiology: Chest x-ray Worsening airspace disease within the right lung Assessment and Plan Advance Directives: Yes (Full code) VTE prophylaxis?: Chemical Plan of care discussed with patient/family: Yes - Patient Problems (1) Acute respiratory failure with hypoxia Current Visit: Yes Status: Acute Plan to address problem: Patient was hypoxic in the PCPs office Oxygen levels to be evaluated Nasal cannula oxygen as necessary (2) SIRS (systemic inflammatory response syndrome) Current Visit: Yes Status: Acute Plan to address problem: Patient's D-dimer is elevated at 532 ferritin was 336 but CRP was normal. (3) Bilateral pneumonia Current Visit: Yes Status: Acute Plan to address problem: Patient initiated on IV ceftriaxone and IV Zithromax. Procalcitonin level pending. ID consult requested. 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
[2021-06-20 21:20] LABS: Basophils # (Auto) 0.1 K/mm3 (0.0-0.1); Basophils % (Auto) 0.8 % (0.0-1.8); Eosinophils # (Auto) 0.3 K/mm3 (0.0-0.4); Eosinophils % (Auto) 3.3 % (0.0-4.3); Hematocrit 47.4 % (30.3-42.9); Hemoglobin 15.9 gm/dl (10.1-14.3); Lymphocytes % (Auto) 22.2 % (13.4-35.0); Mean Corpuscular HGB Conc 34 % (30-34); Mean Corpuscular Volume 91 fl (79-97); Monocytes # (Auto) 1.1 K/mm3 (0.0-0.8); Monocytes % (Auto) 11.7 % (0.0-7.3); Platelet Count 276 K/mm3 (140-440); Red Blood Count 5.23 M/mm3 (3.65-5.03); Red Cell Distribution Width 14.7 % (13.2-15.2)
[2021-06-20 21:43] LABS: Alanine Aminotransferase 41 units/L (7-56); Albumin 3.8 g/dL (3.9-5); Blood Urea Nitrogen 8 mg/dL (7-17); Calcium 9.2 mg/dL (8.4-10.2); Hemolysis Index 21
[2021-06-20 21:56] LABS: BUN/Creatinine Ratio 16
[2021-06-20] MEDS ORDERED: ONDANSETRON 4 MG/2 ML INJ IV PRN (23:00)
[2021-06-20] MEDS ORDERED: ACETAMINOPHEN 325 MG TAB PO PRN (23:00)
--- NOTE | 2021-06-20 23:27 | XRay Report ---
XR chest routine 2V INDICATION / CLINICAL INFORMATION: Shortness of breath. COMPARISON: 06/19/2021 FINDINGS: SUPPORT DEVICES: None. HEART /PULMONARY VASCULATURE: Unchanged. LUNGS / PLEURA: Worsening airspace disease throughout the right lung base. Left lung opacities are un changed. No sizable pleural effusion. No pneumothorax. IMPRESSION: Worsening airspace disease within the right lung. Signer Name: Tavon Baker MD Signed: 06/20/2021 11:22 PM Workstation Name: [id number]
[2021-06-20] MEDS: BUTALB/ACETAMINOPHEN/CAFFEINE TAB PO PRN (23:28)
[2021-06-20] MEDS ORDERED: METOCLOPRAMIDE 10 MG/2 ML INJ IV PRN (23:30)
[2021-06-20] MEDS ORDERED: ENOXAPARIN 40 MG/0.4 ML INJ SUB-Q SCH (23:30)
[2021-06-20] MEDS ORDERED: HYDROmorphone 1 MG/1 ML INJ IV PRN (23:30)
[2021-06-20] MEDS ORDERED: oxyCODONE /ACETAMINOPHEN 5-325MG TAB PO PRN (23:30)
[2021-06-20] MEDS ORDERED: dexAMETHasone 4 MG/ML VIAL IV SCH (23:30)
[2021-06-20] MEDS: cefTRIAXone/NS 2 GM/100 ML 2 GM/100 ML BAG IV SCH (23:35)
[2021-06-20] MEDS: FAMOTIDINE 20 MG TAB PO SCH (23:37)
[2021-06-20] MEDS: AZITHROMYCIN/NS 500 MG/250 ML 500 MG/250 ML BAG IV SCH (23:38)
[2021-06-21] MEDS: SODIUM CHLORIDE 0.9% 1000 ML 1,000 ML IV SCH ×2 (00:36→11:15)
[2021-06-21] MEDS: guaiFENesin DM 200/20 MG ORAL LIQD 10 ML PO PRN ×3 (00:37→22:41)
[2021-06-21] MEDS ORDERED: NON-FORMULARY EACH (Clonidine 0.1 MG) PO SCH (07:45)
--- NOTE | 2021-06-21 08:22 | Progress Note ---
Assessment and Plan Assessment and plan: -- Acute respiratory failure with hypoxia Current Visit: Yes Status: Acute Patient was hypoxic in the PCPs office Oxygen levels to be evaluated Nasal cannula oxygen as necessary --SIRS (systemic inflammatory response syndrome) Current Visit: Yes Status: Acute Patient's D-dimer is elevated at 532 ferritin was 336 but CRP was normal. --Bilateral pneumonia Current Visit: Yes Status: Acute Patient initiated on IV ceftriaxone and IV Zithromax. Procalcitonin level pending. ID consult requested. -- Person under investigation for COVID-19 Current Visit: Yes Status: Acute Patient was tested positive for Covid on May 21 We will repeat the coronavirus PCR IV Decadron initiated ID consult requested --T2DM (type 2 diabetes mellitus) Current Visit: Yes Status: Chronic Patient initiated on Janumet and insulin coverage Hemoglobin A1c is 8.0-hence poorly controlled Patient may need to be discharged on insulin We will defer to primary team --Hypertension Current Visit: Yes Status: Chronic Continue antihypertensives and as needed hydralazine --DVT prophylaxis Current Visit: Yes Status: Acute Plan to address problem: Patient on Lovenox and GI prophylaxis History Interval history: I seen and examined the patient at the bedside this morning, Patient's chart and medications reviewed Admitted with recently diagnosed Covid test outside and worsening shortness of breath and pneumonia Ramires PCR test is sent pending report Patient complains of mild shortness of breath and cough Vital signs noted Hospitalist Physical - Constitutional Vitals: Temp Pulse Resp BP Pulse Ox 98.1 F 68 16 122/70 92 06/21/21 04:20 06/21/21 04:20 06/21/21 04:20 06/21/21 04:20 06/21/21 04:20 General appearance: Present: no acute distress, well-nourished, obese (Morbidly obese) - EENT Eyes: Present: PERRL, scleral icterus - Neck Neck: Present: supple, normal ROM - Respiratory Respiratory effort: normal, labored Respiratory: bilateral: diminished, rhonchi, negative: rales, wheezing - Cardiovascular Rhythm: regular Heart Sounds: Present: S1 & S2 - Extremities Extremities: no ischemia, No edema - Abdominal General gastrointestinal: soft, non-tender, non-distended, distended - Integumentary Integumentary: Present: clear, warm - Psychiatric Psychiatric: appropriate mood/affect, agitated - Neurologic Neurologic: moves all extremities Results - Labs CBC & Chem 7: 06/21/21 09:35 06/21/21 09:35 Labs: Laboratory Last Values WBC 9.2 K/mm3 (4.5-11.0) 06/20/21 21:05 RBC 5.23 M/mm3 (3.65-5.03) H 06/20/21 21:05 Hgb 15.9 gm/dl (10.1-14.3) H 06/20/21 21:05 Hct 47.4 % (30.3-42.9) H 06/20/21 21:05 MCV 91 fl (79-97) 06/20/21 21:05 MCH 30 pg (28-32) 06/20/21 21:05 MCHC 34 % (30-34) 06/20/21 21:05 RDW 14.7 % (13.2-15.2) 06/20/21 21:05 Plt Count 276 K/mm3 (140-440) 06/20/21 21:05 Lymph % (Auto) 22.2 % (13.4-35.0) 06/20/21 21:05 Bea[place]gard % (Auto) 11.7 % (0.0-7.3) H 06/20/21 21:05 Eos % (Auto) 3.3 % (0.0-4.3) 06/20/21 21:05 Baso % (Auto) 0.8 % (0.0-1.8) 06/20/21 21:05 Lymph # (Auto) 2.0 K/mm3 (1.2-5.4) 06/20/21 21:05 Beauregard # (Auto) 1.1 K/mm3 (0.0-0.8) H 06/20/21 21:05 Eos # (Auto) 0.3 K/mm3 (0.0-0.4) 06/20/21 21:05 Baso # (Auto) 0.1 K/mm3 (0.0-0.1) 06/20/21 21:05 Seg Neutrophils % 62.0 % (40.0-70.0) 06/20/21 21:05 Seg Neutrophils # 5.7 K/mm3 (1.8-7.7) 06/20/21 21:05 D-Dimer 532.71 ng/mlDDU (0-234) H 06/20/21 21:05 Sodium 140 mmol/L (137-145) 06/20/21 21:05 Potassium 4.1 mmol/L (3.6-5.0) 06/20/21 21:05 Chloride 102.8 mmol/L (98-107) 06/20/21 21:05 Carbon Dioxide 22 mmol/L (22-30) 06/20/21 21:05 Anion Gap 19 mmol/L 06/20/21 21:05 BUN 8 mg/dL (7-17) 06/20/21 21:05 Creatinine 0.5 mg/dL (0.6-1.2) L 06/20/21 21:05 Estimated GFR > 60 ml/min 06/20/21 21:05 BUN/Creatinine Ratio 16 % 06/20/21 21:05 Glucose 153 mg/dL (65-100) H 06/20/21 21:05 Glucose 161 mg/dL (65-100) H 06/20/21 21:05 POC Glucose 189 mg/dL (70-105) H 06/21/21 07:57 Hemoglobin A1c 8.0 % (4-6) H 06/20/21 21:05 Calcium 9.2 mg/dL (8.4-10.2) 06/20/21 21:05 Ferritin 336.8 ng/mL (10.0-200.0) H 06/20/21 21:05 Total Bilirubin 0.50 mg/dL (0.1-1.2) 06/20/21 21:05 AST 49 units/L (5-40) H 06/20/21 21:05 ALT 41 units/L (7-56) 06/20/21 21:05 Alkaline Phosphatase 119 units/L (35-129) 06/20/21 21:05 Lactate Dehydrogenase 247 units/L (91-180) H 06/20/21 21:05 C-Reactive Protein 1.00 mg/dL (0.00-1.30) 06/20/21 21:05 Total Protein 6.9 g/dL (6.3-8.2) 06/20/21 21:05 Albumin 3.8 g/dL (3.9-5) L 06/20/21 21:05 Albumin/Globulin Ratio 1.2 % 06/20/21 21:05 Power/IV: Voiding Method Toilet Active Medications - Current Medications Current Medications: Generic Name Dose Route Start Last Admin Trade Name Freq PRN Reason Stop Dose Admin Acetaminophen 650 mg 06/20/21 23:00 Acetaminophen 325 Mg Tab PO Q4H PRN Pain MILD(1-3)/Fever >100.5/GUTIÉRREZ Acetaminophen/Butalbital/Caffeine 1 tab 06/20/21 23:30 06/20/21 23:28 Butalb/Acetaminophen/Caffeine Tab PO 1 tab Q4H PRN Administration Headache Cetirizine HCl 10 mg 06/21/21 10:00 Cetirizine 10 Mg Tab PO DAILY BEBA Clonidine HCl 0.1 mg 06/21/21 10:00 Clonidine 0.1 Mg Tab PO Q12HR [facility] Dexamethasone 8 mg 06/21/21 10:00 Dexamethasone 4 Mg/Ml Vial IV 06/29/21 10:01 DAILY BEBA Enoxaparin Sodium 40 mg 06/20/21 23:30 06/20/21 23:37 Enoxaparin 40 Mg/0.4 Ml Inj SUB-Q 40 mg QDAY BEBA Administration Famotidine 20 mg 06/20/21 23:30 06/20/21 23:37 Famotidine 20 Mg Tab PO 20 mg BID BEBA Administration Guaifenesin 10 ml 06/21/21 00:26 06/21/21 00:37 Guaifenesin Dm 200/20 Mg Oral Liqd 10 Ml PO 10 ml Q4H PRN Administration Cough Hydromorphone HCl 0.5 mg 06/20/21 23:30 Hydromorphone 1 Mg/1 Ml Inj IV Q3H PRN Pain , Severe (7-10) Sodium Chloride 1,000 mls @ 75 mls/hr 06/20/21 23:30 06/21/21 00:36 Nacl 0.9% 1000 Ml IV 06/21/21 23:29 75 mls/hr DIRECT BEBA Administration Azithromycin 500 mg in 250 mls @ 250 mls/hr 06/20/21 23:30 06/21/21 01:02 Zithromax/Ns IV Infused Q24H [facility] Infusion Ceftriaxone Sodium 2 gm in 100 mls @ 200 mls/hr 06/20/21 23:00 06/21/21 01:03 Rocephin/Ns 2 Gm/100 Ml IV Infused Q24HR [facility] Infusion Protocol Insulin Human Lispro 0 unit 06/21/21 11:30 Insulin Lispro 100 Unit/Ml SUB-Q ACHS [facility] Protocol Linagliptin 5 mg 06/21/21 08:30 Linagliptin 5 Mg Tab PO QDDIAB [facility] Lorazepam 1 mg 06/21/21 22:00 Lorazepam 1 Mg Tab PO QHS [facility] Losartan Potassium 50 mg 06/21/21 10:00 Losartan 50 Mg Tab PO QDAY [facility] Metformin HCl 1,000 mg 06/21/21 08:30 Metformin 500 Mg Tab PO BIDDIAB [facility] Methocarbamol 750 mg 06/21/21 07:41 Methocarbamol 750 Mg Tab PO Q8H PRN Spasms Metoclopramide HCl 10 mg 06/20/21 23:30 Metoclopramide 10 Mg/2 Ml Inj IV Q6H PRN Nausea And Vomiting Miscellaneous Medication 1 mg 06/21/21 10:00 Anastrozole PO DAILY [facility] Ondansetron HCl 4 mg 06/20/21 23:00 Ondansetron 4 Mg/2 Ml Inj IV Q3H PRN Nausea And Vomiting Oxycodone/Acetaminophen 1 tab 06/20/21 23:30 Oxycodone /Acetaminophen 5-325mg Tab PO Q6H PRN Pain, Moderate (4-6) Sodium Chloride 10 ml 06/20/21 23:00 06/20/21 23:36 Sodium Chloride 0.9% 10 Ml Flush Syringe IV 10 ml BID BEBA Administration Sodium Chloride 10 ml 06/20/21 23:00 Sodium Chloride 0.9% 10 Ml Flush Syringe IV PRN PRN LINE FLUSH
[2021-06-21 09:59] LABS: Basophils % (Auto) 0.6 % (0.0-1.8); Hematocrit 47.9 % (30.3-42.9); Hemoglobin 16.1 gm/dl (10.1-14.3); Lymphocytes # (Auto) 0.8 K/mm3 (1.2-5.4); Lymphocytes % (Auto) 13.5 % (13.4-35.0); Mean Corpuscular HGB Conc 34 % (30-34); Mean Corpuscular Volume 91 fl (79-97); Monocytes # (Auto) 0.1 K/mm3 (0.0-0.8); Platelet Count 266 K/mm3 (140-440); Red Blood Count 5.24 M/mm3 (3.65-5.03); Red Cell Distribution Width 14.4 % (13.2-15.2)
[2021-06-21] MEDS ORDERED: ANASTROZOLE 1 MG PO SCH (10:00)
[2021-06-21] MEDS ORDERED: NON-FORMULARY EACH (Losartan 50 MG) PO SCH (10:00)
[2021-06-21] MEDS ORDERED: NON-FORMULARY EACH (Cetirizine Hcl 10 MG) PO SCH (10:00)
[2021-06-21] MEDS ORDERED: JANUMET PO SCH (10:00)
[2021-06-21 10:09] LABS: Blood Urea Nitrogen 10 mg/dL (7-17); Calcium 9.3 mg/dL (8.4-10.2); Hemolysis Index 5
[2021-06-21 10:10] LABS: BUN/Creatinine Ratio 20
[2021-06-21] MEDS: ENOXAPARIN 40 MG/0.4 ML INJ SUB-Q SCH ×2 (10:12→22:41)
[2021-06-21] MEDS: cefTRIAXone/NS 2 GM/100 ML 2 GM/100 ML BAG IV SCH (10:13)
[2021-06-21] MEDS: dexAMETHasone 4 MG/ML VIAL IV SCH (10:13)
[2021-06-21] MEDS: CETIRIZINE 10 MG TAB PO SCH (10:13)
[2021-06-21] MEDS: cloNIDine 0.1 MG TAB PO SCH ×2 (10:13→22:41)
[2021-06-21] MEDS: FAMOTIDINE 20 MG TAB PO SCH ×2 (10:14→22:42)
[2021-06-21] MEDS: LOSARTAN 50 MG TAB PO SCH (10:14)
[2021-06-21] MEDS: LINAGLIPTIN 5 MG TAB PO SCH (10:24)
[2021-06-21] MEDS: metFORMIN 500 MG TAB PO SCH ×2 (10:29→17:45)
[2021-06-21] MEDS: BUTALB/ACETAMINOPHEN/CAFFEINE TAB PO PRN ×2 (11:10→22:41)
[2021-06-21] MEDS: INSULIN LISPRO 100 UNIT/ML SUB-Q SCH ×3 (11:30→22:42)
--- NOTE | 2021-06-21 14:38 | Consultation ---
History of Present Illness - Reason for Consult Consult date: 06/21/21 COVID Requesting physician: ANANDA AGUSTIN - History of Present Illness The patient is a 55-year-old female with diabetes, hypertension, diagnosed with COVID-19 almost a month ago was admitted to the hospital with worsening shortness of breath and cough and developing hypoxia at home. She received Z- Mark as an outpatient from her PCP initially. Denies receiving steroids. Currently, she is hypoxic and her main symptom is cough and shortness of breath. Has mild chest pressure when she coughs. WBC 9.2, D-dimer 532, ferritin 336, CRP 1.0. Review of Systems: General: No fevers anymore, was initially having fevers HEENT: no new visual disturbance Respiratory: Cough, shortness of breath Cardiovascular: No chest pain, syncope Gastrointestinal: No nausea, vomiting or diarrhea Genitourinary: No dysuria or hematuria Musculoskeletal: No new or worsening neck pain or back pain Neurologic: No headaches, seizures Hematologic: No easy bruising or bleeding Endocrine: No night sweats or acute weight loss Skin: negative for rash, jaundice Psychiatric: No suicidal or homicidal ideation Past History Past Medical History: diabetes, hypertension, other (Migraine) Past Surgical History: No surgical history Social history: no significant social history, lives with family Family history: hypertension Medications and Allergies Allergies Allergy/AdvReac Type Severity Reaction Status Date / Time No Known Allergies Allergy Verified 11/10/20 07:49 Home Medications Medication Instructions Recorded Confirmed Last Taken Type Aleve 1 tab PO PRN PRN 01/01/19 06/21/21 06/20/21 History Anastrozole 1 mg PO DAILY 01/01/19 06/21/21 06/20/21 History Cetirizine HCl 10 mg PO DAILY 01/01/19 06/21/21 06/20/21 History Clonidine 0.1 mg PO DAILY 01/01/19 06/21/21 06/20/21 History Janumet 50-1,000 mg 1 tab PO BID 01/01/19 06/21/21 06/20/21 History Losartan 25 mg PO DAILY 01/01/19 06/21/21 06/20/21 History Omeprazole 1 tab PO DAILY 01/01/19 06/21/21 06/20/21 History LORazepam 1 mg PO DAILY 03/09/19 06/21/21 06/20/21 History Naproxen [Naprosyn] 500 mg PO BID PRN #20 tablet 04/20/19 06/21/21 06/20/21 Rx Ketorolac [Toradol] 10 mg PO Q6H PRN #15 tablet 08/13/19 06/21/21 06/20/21 Rx methOCARBAMOL [Robaxin] 750 mg PO Q8H PRN #21 tablet 08/13/19 06/21/21 06/20/21 Rx Hydrocodone/Chlorphen Polis(Nf 5 ml PO BID 7 Days #70 ml 02/04/20 06/21/21 0 06/20/21 Rx [Tussionex (Nf)] Ibuprofen [Motrin] 800 mg PO Q8HR PRN #30 tablet 03/11/20 06/21/21 06/20/21 Rx tiZANidine [Zanaflex 4mg TAB] 4 mg PO Q8H PRN #21 tablet 03/11/20 06/21/21 06/20/21 Rx Menthol/Camphor [Irene Alto 1 applicatio TP BID #18 oint...g. 11/10/20 06/21/21 06/20/21 Rx Ointment] Naproxen [EC-Naprosyn] 500 mg PO BID PRN #14 tablet. 11/10/20 06/21/21 06/20/21 Rx methOCARBAMOL [Robaxin TAB] 500 mg PO BID PRN #14 tab 11/10/20 06/21/21 06/20/21 Rx traMADoL [Ultram 50 MG tab] 50 mg PO Q6HR PRN #10 tablet 11/10/20 06/21/21 06/20/21 Rx Active Meds: Active Medications Acetaminophen (Acetaminophen 325 Mg Tab) 650 mg PO Q4H PRN PRN Reason: Pain MILD(1-3)/Fever >100.5/GUTIÉRREZ Acetaminophen/Butalbital/Caffeine (Butalb/Acetaminophen/Caffeine Tab) 1 tab PO Q4H PRN PRN Reason: Headache Last Admin: 06/21/21 11:10 Dose: 1 tab Documented by: Cetirizine HCl (Cetirizine 10 Mg Tab) 10 mg PO DAILY [facility] Last Admin: 06/21/21 10:13 Dose: 10 mg Documented by: Clonidine HCl (Clonidine 0.1 Mg Tab) 0.1 mg PO Q12HR [facility] Last Admin: 06/21/21 10:13 Dose: 0.1 mg Documented by: Dexamethasone (Dexamethasone 4 Mg/Ml Vial) 8 mg IV DAILY [facility] Stop: 06/29/21 10:01 Last Admin: 06/21/21 10:13 Dose: 8 mg Documented by: Enoxaparin Sodium (Enoxaparin 40 Mg/0.4 Ml Inj) 40 mg SUB-Q Q12HR [facility] Last Admin: 06/21/21 10:12 Dose: 40 mg Documented by: Famotidine (Famotidine 20 Mg Tab) 20 mg PO BID [facility] Last Admin: 06/21/21 10:14 Dose: 20 mg Documented by: Guaifenesin (Guaifenesin Dm 200/20 Mg Oral Liqd 10 Ml) 10 ml PO Q4H PRN PRN Reason: Cough Last Admin: 06/21/21 10:24 Dose: 10 ml Documented by: Hydromorphone HCl (Hydromorphone 1 Mg/1 Ml Inj) 0.5 mg IV Q3H PRN PRN Reason: Pain , Severe (7-10) Sodium Chloride (Nacl 0.9% 1000 Ml) 1,000 mls @ 75 mls/hr IV DIRECT [facility] Stop: 06/21/21 23:29 Last Admin: 06/21/21 11:15 Dose: 75 mls/hr Documented by: Azithromycin (Zithromax/Ns) 500 mg in 250 mls @ 250 mls/hr IV Q24H [facility] Last Infusion: 06/21/21 01:02 Dose: Infused Documented by: Ceftriaxone Sodium (Rocephin/Ns 2 Gm/100 Ml) 2 gm in 100 mls @ 200 mls/hr IV Q24HR [facility]; Protocol Last Admin: 06/21/21 10:13 Dose: 200 mls/hr Documented by: Insulin Human Lispro (Insulin Lispro 100 Unit/Ml) 0 unit SUB-Q ACHS [facility]; Protocol Last Admin: 06/21/21 11:30 Dose: Not Given Documented by: Linagliptin (Linagliptin 5 Mg Tab) 5 mg PO QDDIAB [facility] Last Admin: 06/21/21 10:24 Dose: 5 mg Documented by: Lorazepam (Lorazepam 1 Mg Tab) 1 mg PO QHS [facility] Losartan Potassium (Losartan 50 Mg Tab) 50 mg PO QDAY [facility] Last Admin: 06/21/21 10:14 Dose: 50 mg Documented by: Metformin HCl (Metformin 500 Mg Tab) 1,000 mg PO BIDDIAB [facility] Last Admin: 06/21/21 10:29 Dose: 1,000 mg Documented by: Methocarbamol (Methocarbamol 750 Mg Tab) 750 mg PO Q8H PRN PRN Reason: Spasms Metoclopramide HCl (Metoclopramide 10 Mg/2 Ml Inj) 10 mg IV Q6H PRN PRN Reason: Nausea And Vomiting Miscellaneous Medication (Anastrozole) 1 mg PO DAILY [facility] Ondansetron HCl (Ondansetron 4 Mg/2 Ml Inj) 4 mg IV Q3H PRN PRN Reason: Nausea And Vomiting Oxycodone/Acetaminophen (Oxycodone /Acetaminophen 5-325mg Tab) 1 tab PO Q6H PRN PRN Reason: Pain, Moderate (4-6) Sodium Chloride (Sodium Chloride 0.9% 10 Ml Flush Syringe) 10 ml IV BID [facility] Last Admin: 06/21/21 10:14 Dose: 10 ml Documented by: Sodium Chloride (Sodium Chloride 0.9% 10 Ml Flush Syringe) 10 ml IV PRN PRN PRN Reason: LINE FLUSH Physical Examination - Physical Exam Narrative exam: Physical Exam: Constitutional: Alert, cooperative. No acute distress Head, Ears, Nose: Normocephalic, atraumatic. External ears, nose normal Eyes: Conjunctivae/corneas clear. No icterus. No ptosis. Neck: Supple, no meningeal signs Oral: Mask Cardiovascular: S1, S2 + Respiratory: Good air entry, clear to auscultation bilaterally GI: Soft, non-tender; bowel sounds normal. No peritoneal signs Musculoskeletal: No pedal edema, no cyanosis. Skin: No rash or abscess Hem/Lymphatic: No palpable cervical or supraclavicular nodes. No lymphangitis Psych: Mood ok. Affect normal Neurological: Awake, alert, oriented. No gross abnormality - Constitutional Vitals: Vital Signs Temp Pulse Resp BP Pulse Ox 98.2 F 80 19 126/75 95 06/21/21 11:30 06/21/21 11:31 06/21/21 11:30 06/21/21 11:30 06/21/21 14:08 Temperature -Last 24 Hours Temperature 98.2 F Temperature 98.1 F Temperature 98.2 F Results - Labs CBC & Chem 7: 06/21/21 09:35 06/21/21 09:35 Labs: Abnormal lab results 06/20/21 06/20/21 06/20/21 Range/Units 21:05 21:05 21:05 RBC 5.23 H (3.65-5.03) M/mm3 Hgb 15.9 H (10.1-14.3) gm/dl Hct 47.4 H (30.3-42.9) % [place] % (Auto) 11.7 H (0.0-7.3) % Lymph # (Auto) (1.2-5.4) K/mm3 [place] # (Auto) 1.1 H (0.0-0.8) K/mm3 Seg Neutrophils % (40.0-70.0) % D-Dimer (0-234) ng/mlDDU Creatinine 0.5 L (0.6-1.2) mg/dL Glucose 153 H (65-100) mg/dL POC Glucose (70-105) mg/dL Hemoglobin A1c 8.0 H (4-6) % Ferritin (10.0-200.0) ng/mL AST 49 H (5-40) units/L Lactate Dehydrogenase (91-180) units/L Albumin 3.8 L (3.9-5) g/dL 06/20/21 06/20/21 06/20/21 Range/Units 21:05 21:05 21:05 RBC (3.65-5.03) M/mm3 Hgb (10.1-14.3) gm/dl Hct (30.3-42.9) % [place] % (Auto) (0.0-7.3) % Lymph # (Auto) (1.2-5.4) K/mm3 [place] # (Auto) (0.0-0.8) K/mm3 Seg Neutrophils % (40.0-70.0) % D-Dimer 532.71 H (0-234) ng/mlDDU Creatinine (0.6-1.2) mg/dL Glucose 161 H (65-100) mg/dL POC Glucose (70-105) mg/dL Hemoglobin A1c (4-6) % Ferritin 336.8 H (10.0-200.0) ng/mL AST (5-40) units/L Lactate Dehydrogenase 247 H (91-180) units/L Albumin (3.9-5) g/dL 06/20/21 06/21/21 06/21/21 Range/Units 22:16 07:57 09:35 RBC 5.24 H (3.65-5.03) M/mm3 Hgb 16.1 H (10.1-14.3) gm/dl Hct 47.9 H (30.3-42.9) % [place] % (Auto) (0.0-7.3) % Lymph # (Auto) 0.8 L (1.2-5.4) K/mm3 [place] # (Auto) (0.0-0.8) K/mm3 Seg Neutrophils % 83.9 H (40.0-70.0) % D-Dimer (0-234) ng/mlDDU Creatinine (0.6-1.2) mg/dL Glucose (65-100) mg/dL POC Glucose 178 H 189 H (70-105) mg/dL Hemoglobin A1c (4-6) % Ferritin (10.0-200.0) ng/mL AST (5-40) units/L Lactate Dehydrogenase (91-180) units/L Albumin (3.9-5) g/dL 06/21/21 06/21/21 Range/Units 09:35 11:34 RBC (3.65-5.03) M/mm3 Hgb (10.1-14.3) gm/dl Hct (30.3-42.9) % [place] % (Auto) (0.0-7.3) % Lymph # (Auto) (1.2-5.4) K/mm3 [place] # (Auto) (0.0-0.8) K/mm3 Seg Neutrophils % (40.0-70.0) % D-Dimer (0-234) ng/mlDDU Creatinine 0.5 L (0.6-1.2) mg/dL Glucose 234 H (65-100) mg/dL POC Glucose 280 H (70-105) mg/dL Hemoglobin A1c (4-6) % Ferritin (10.0-200.0) ng/mL AST (5-40) units/L Lactate Dehydrogenase (91-180) units/L Albumin (3.9-5) g/dL - Imaging and Cardiology Chest x-ray: report reviewed, image reviewed (patchy b/l pneumonia, worse compared to prior) Assessment and Plan Cultures: COVID-19 PCR: Positive as outpatient a month ago A/P: 55/F with diabetes, hypertension, obesity, diagnosed with COVID-19 in April 2021 admitted with: #Bilateral pneumonia secondary to COVID-19: CXR with worsening disease. WBC 9.2, D-dimer 532, ferritin 336, CRP 1.0. #Acute hypoxic respiratory failure: On nasal cannula #Diabetes mellitus type 2: Uncontrolled #Obesity Recs: Outside the window for remdesivir Continue steroids for 10 to 14 days Continue empiric antibiotics for now, follow-up procalcitonin Anticoagulation per protocol. Follow-up CTA chest Bear Mcnally MD, FACP [facility] ([facility] O: [phone] F: [phone]
--- NOTE | 2021-06-21 15:24 | Cat Scan Report ---
CTA CHEST WITH IV CONTRAST INDICATION: 55-year-old female with hypoxemia, dyspnea with chest pain. Covid 19 positive. TECHNIQUE: Axial CT images were obtained through the chest after injection of 100 mL IV contrast. 3 plane MIP re constructions were produced. All CT scans at this location are performed using CT dose reduction for ALARA by means of automated exposure control. COMPARISON: None available. FINDINGS: PULMONARY ARTERIES: No pulmonary emboli. AORTA AND ARTERIES: No acute abnormality. MEDIASTINUM: No mass, lymphadenopathy or other significant abnormality. The heart is normal in size w ithout a pericardial effusion. The trachea and main bronchi are patent and normal in caliber. LUNGS: Prominent mixed interstitial and groundglass opacities throughout both lungs. ADDITIONAL FINDINGS: None. UPPER ABDOMEN: No acute findings. Prior cholecystectomy. BONES: No significant osseous abnormality. IMPRESSION: 1. No CT evidence for pulmonary embolism. 2. Extensive atypical appearing pneumonia throughout both lungs most consistent with Covid 19. Signer Name: Mika Ballard MD Signed: 06/21/2021 3:20 PM Workstation Name: [id number]
[2021-06-21] MEDS ORDERED: LORAZEPAM 1 MG PO SCH (22:00)
[2021-06-21] MEDS: AZITHROMYCIN/NS 500 MG/250 ML 500 MG/250 ML BAG IV SCH (22:41)
[2021-06-21] MEDS: LORazepam 1 MG TAB PO SCH (22:41)
[2021-06-22] MEDS: cefTRIAXone/NS 2 GM/100 ML 2 GM/100 ML BAG IV SCH (10:26)
[2021-06-22] MEDS: guaiFENesin DM 200/20 MG ORAL LIQD 10 ML PO PRN ×2 (10:26→16:30)
[2021-06-22] MEDS: CETIRIZINE 10 MG TAB PO SCH (10:27)
[2021-06-22] MEDS: metFORMIN 500 MG TAB PO SCH ×2 (10:27→16:30)
[2021-06-22] MEDS: INSULIN LISPRO 100 UNIT/ML SUB-Q SCH ×4 (10:27→22:24)
[2021-06-22] MEDS: LINAGLIPTIN 5 MG TAB PO SCH (10:27)
[2021-06-22] MEDS: cloNIDine 0.1 MG TAB PO SCH ×2 (10:27→22:45)
[2021-06-22] MEDS: FAMOTIDINE 20 MG TAB PO SCH ×2 (10:27→21:01)
[2021-06-22] MEDS: LOSARTAN 50 MG TAB PO SCH (10:27)
[2021-06-22] MEDS: ENOXAPARIN 40 MG/0.4 ML INJ SUB-Q SCH ×2 (10:28→21:02)
[2021-06-22] MEDS: dexAMETHasone 4 MG/ML VIAL IV SCH (10:47)
--- NOTE | 2021-06-22 12:00 | Progress Note ---
Assessment and Plan Cultures: COVID-19 PCR: Positive as outpatient a month ago. Negative here. A/P: 55/F with diabetes, hypertension, obesity, diagnosed with COVID-19 in April 2021 admitted with: #Bilateral pneumonia: COVID here is negative, suspect COVID-19 related sequelae since she was positive a month ago and has had progressive symptoms. CXR with worsening disease. WBC 9.2, D-dimer 532, ferritin 336, CRP 1.0. CT chest done, showed no PE, showed extensive bilateral atypical pneumonia consistent with COVID-19 type features. #Acute hypoxic respiratory failure: On nasal cannula. #Diabetes mellitus type 2: Uncontrolled #Obesity Recs: Continue steroids for 10 to 14 days Continue empiric antibiotics for now, follow-up procalcitonin 2D echocardiogram ordered Oxygen weaning Bear Mcnally MD, FACP [facility] ([facility] O: [phone] F: [phone] Subjective Date of service: 06/22/21 Interval history: Feeling slightly better. Cough present. No fever. Got CT chest done, showed no PE, showed extensive bilateral atypical pneumonia consistent with COVID-19 type features. Objective - Exam Narrative Exam: Physical Exam: Constitutional: Alert, cooperative. No acute distress Head, Ears, Nose: Normocephalic, atraumatic. External ears, nose normal Eyes: Conjunctivae/corneas clear. No icterus. No ptosis. Neck: Supple, no meningeal signs Oral: Mask Cardiovascular: S1, S2 + Respiratory: AE with coarse sounds b/l GI: Soft, non-tender; bowel sounds normal. No peritoneal signs Musculoskeletal: No pedal edema, no cyanosis. Skin: No rash or abscess Hem/Lymphatic: No palpable cervical or supraclavicular nodes. No lymphangitis Psych: Mood ok. Affect normal Neurological: Awake, alert, oriented. No gross abnormality - Constitutional Vitals: Vital Signs Temp Pulse Resp BP Pulse Ox 97.9 F 71 20 113/63 96 06/22/21 05:49 06/22/21 05:49 06/22/21 05:49 06/22/21 05:49 06/22/21 05:49 Temperature -Last 24 Hours Temperature 97.9 F Temperature 98.3 F - Labs CBC & Chem 7: 06/21/21 09:35 06/21/21 09:35 Labs: Abnormal lab results 06/21/21 06/21/21 06/22/21 Range/Units 16:11 22:29 10:26 POC Glucose 190 H 160 H 206 H (70-105) mg/dL 06/22/21 Range/Units 11:44 POC Glucose 177 H (70-105) mg/dL
[2021-06-22] MEDS: BUTALB/ACETAMINOPHEN/CAFFEINE TAB PO PRN (12:31)
--- NOTE | 2021-06-22 16:34 | Progress Note ---
Assessment and Plan Assessment and plan: 55-year-old morbidly obese female patient had Covid infection in April 2021, readmitted this time with worsening shortness of breath Ramires PCR test during this admission is negative however patient has all progressive symptoms with worsening pneumonia bilateral on chest x-ray Elevated inflammatory markers, atypical pneumonia on CT chest, continue steroids higher dose 8 mg IV total 10 to 14 days follow inflammatory markers, Home oxygen evaluation, supplemental oxygen with wean as tolerated, prone po sitioning, patient has bilateral pneumonia on empiric antibiotics Follow procalcitonin levels, if within normal limits DC antibiotics. Patient feels slightly better today --COVID-19 test is negative 06/21/2021 --Covid positive status last month 04/2021 - Acute respiratory failure with hypoxia Current Visit: Yes Status: Acute Patient was hypoxic in the PCPs office Oxygen levels to be evaluated Nasal cannula oxygen as necessary --Elevated D-dimers; Current Visit: Yes Status: Acute CTA chest; negative for PE, extensive atypical pneumonia throughout both lungs ,consistent with COVID-19 Progressive symptoms from last month COVID-19 infection --SIRS (systemic inflammatory response syndrome) Current Visit: Yes Status: Acute Patient's D-dimer is elevated at 532 ferritin was 336 but CRP was normal. --Bilateral pneumonia Current Visit: Yes Status: Acute Patient was positive Covid 1 month ago COVID-19 related sequelae with progressive symptoms of worsening pneumonia Continue empiric IV ceftriaxone and IV Zithromax. Follow procalcitonin level if normal DC antibiotics ID following --PUI; negative Covid test 06/21/2021 Current Visit: Yes Status: Acute Patient was tested positive for Covid on May 21 --T2DM (type 2 diabetes mellitus) Current Visit: Yes Status: Chronic Patient initiated on Janumet and insulin coverage Hemoglobin A1c is 8.0-hence poorly controlled Patient may need to be discharged on insulin We will defer to primary team --Hypertension Current Visit: Yes Status: Chronic Continue antihypertensives and as needed hydralazine --History of breast cancer; Current Visit: Yes Status: Chronic Patient is being on chemotherapy She will take her own medication during the hospital stay --DVT prophylaxis Current Visit: Yes Status: Acute Plan to address problem: Patient on Lovenox and GI prophylaxis We will closely monitor the patient and adjust the management as needed Plan of care reviewed with the patient and her nurse consults and recommendations noted and appreciated 06/22/2021; Covid test negative Continue empiric antibiotics Follow inflammatory markers Follow procalcitonin , if normal will DC antibiotics History Interval history: I have seen and examined the patient at the bedside Patient's chart and medications reviewed No new events reported by the nursing Patient feels slightly better complains of cough Hospitalist Physical - Constitutional Vitals: Temp Pulse Resp BP Pulse Ox 98.0 F 63 20 115/53 97 06/22/21 11:45 06/22/21 11:45 06/22/21 12:31 06/22/21 11:45 06/22/21 11:45 General appearance: Present: no acute distress, well-nourished, obese (Morbidly obese) - EENT Eyes: Present: PERRL, EOM intact - Neck Neck: Present: supple, normal ROM - Respiratory Respiratory effort: normal Respiratory: bilateral: diminished, rhonchi, negative: rales, wheezing - Cardiovascular Rhythm: regular Heart Sounds: Present: S1 & S2 - Extremities Extremities: no ischemia, No edema - Abdominal General gastrointestinal: soft, non-tender, non-distended, normal bowel sounds - Integumentary Integumentary: Present: clear, warm - Psychiatric Psychiatric: appropriate mood/affect, cooperative - Neurologic Neurologic: CNII-XII intact, moves all extremities Results - Labs CBC & Chem 7: 06/21/21 09:35 06/21/21 09:35 Labs: Laboratory Last Values WBC 6.1 K/mm3 (4.5-11.0) 06/21/21 09:35 RBC 5.24 M/mm3 (3.65-5.03) H 06/21/21 09:35 Hgb 16.1 gm/dl (10.1-14.3) H 06/21/21 09:35 Hct 47.9 % (30.3-42.9) H 06/21/21 09:35 MCV 91 fl (79-97) 06/21/21 09:35 MCH 31 pg (28-32) 06/21/21 09:35 MCHC 34 % (30-34) 06/21/21 09:35 RDW 14.4 % (13.2-15.2) 06/21/21 09:35 Plt Count 266 K/mm3 (140-440) 06/21/21 09:35 Lymph % (Auto) 13.5 % (13.4-35.0) 06/21/21 09:35 [place] % (Auto) 2.0 % (0.0-7.3) 06/21/21 09:35 Eos % (Auto) 0.0 % (0.0-4.3) 06/21/21 09:35 Baso % (Auto) 0.6 % (0.0-1.8) 06/21/21 09:35 Lymph # (Auto) 0.8 K/mm3 (1.2-5.4) L 06/21/21 09:35 [place] # (Auto) 0.1 K/mm3 (0.0-0.8) 06/21/21 09:35 Eos # (Auto) 0.0 K/mm3 (0.0-0.4) 06/21/21 09:35 Baso # (Auto) 0.0 K/mm3 (0.0-0.1) 06/21/21 09:35 Seg Neutrophils % 83.9 % (40.0-70.0) H 06/21/21 09:35 Seg Neutrophils # 5.1 K/mm3 (1.8-7.7) 06/21/21 09:35 D-Dimer 532.71 ng/mlDDU (0-234) H 06/20/21 21:05 Sodium 139 mmol/L (137-145) 06/21/21 09:35 Potassium 4.5 mmol/L (3.6-5.0) 06/21/21 09:35 Chloride 102.4 mmol/L (98-107) 06/21/21 09:35 Carbon Dioxide 25 mmol/L (22-30) 06/21/21 09:35 Anion Gap 16 mmol/L 06/21/21 09:35 BUN 10 mg/dL (7-17) 06/21/21 09:35 Creatinine 0.5 mg/dL (0.6-1.2) L 06/21/21 09:35 Estimated GFR > 60 ml/min 06/21/21 09:35 BUN/Creatinine Ratio 20 % 06/21/21 09:35 Glucose 234 mg/dL (65-100) H 06/21/21 09:35 POC Glucose 175 mg/dL (70-105) H 06/22/21 16:05 Hemoglobin A1c 8.0 % (4-6) H 06/20/21 21:05 Calcium 9.3 mg/dL (8.4-10.2) 06/21/21 09:35 Ferritin 336.8 ng/mL (10.0-200.0) H 06/20/21 21:05 Total Bilirubin 0.50 mg/dL (0.1-1.2) 06/20/21 21:05 AST 49 units/L (5-40) H 06/20/21 21:05 ALT 41 units/L (7-56) 06/20/21 21:05 Alkaline Phosphatase 119 units/L (35-129) 06/20/21 21:05 Lactate Dehydrogenase 247 units/L (91-180) H 06/20/21 21:05 C-Reactive Protein 1.00 mg/dL (0.00-1.30) 06/20/21 21:05 Total Protein 6.9 g/dL (6.3-8.2) 06/20/21 21:05 Albumin 3.8 g/dL (3.9-5) L 06/20/21 21:05 Albumin/Globulin Ratio 1.2 % 06/20/21 21:05 Coronavirus (PCR) Negative (Negative) 06/21/21 Unknown Power/IV: Voiding Method Toilet Active Medications - Current Medications Current Medications: Generic Name Dose Route Start Last Admin Trade Name Freq PRN Reason Stop Dose Admin Acetaminophen 650 mg 06/20/21 23:00 Acetaminophen 325 Mg Tab PO Q4H PRN Pain MILD(1-3)/Fever >100.5/GUTIÉRREZ Acetaminophen/Butalbital/Caffeine 1 tab 06/20/21 23:30 06/22/21 12:31 Butalb/Acetaminophen/Caffeine Tab PO 1 tab Q4H PRN Administration Headache Cetirizine HCl 10 mg 06/21/21 10:00 06/22/21 10:27 Cetirizine 10 Mg Tab PO 10 mg DAILY BEBA Administration Clonidine HCl 0.1 mg 06/21/21 10:00 06/22/21 10:27 Clonidine 0.1 Mg Tab PO 0.1 mg Q12HR BEBA Administration Dexamethasone 8 mg 06/21/21 10:00 06/22/21 10:47 Dexamethasone 4 Mg/Ml Vial IV 06/29/21 10:01 8 mg DAILY BEBA Administration Enoxaparin Sodium 40 mg 06/21/21 10:00 06/22/21 10:28 Enoxaparin 40 Mg/0.4 Ml Inj SUB-Q 40 mg Q12HR BBEA Administration Famotidine 20 mg 06/20/21 23:30 06/22/21 10:27 Famotidine 20 Mg Tab PO 20 mg BID BEBA Administration Guaifenesin 10 ml 06/21/21 00:26 06/22/21 16:30 Guaifenesin Dm 200/20 Mg Oral Liqd 10 Ml PO 10 ml Q4H PRN Administration Cough Hydromorphone HCl 0.5 mg 06/20/21 23:30 Hydromorphone 1 Mg/1 Ml Inj IV Q3H PRN Pain , Severe (7-10) Azithromycin 500 mg in 250 mls @ 250 mls/hr 06/20/21 23:30 06/21/21 22:41 Zithromax/Ns IV 250 mls/hr Q24H BEBA Administration Ceftriaxone Sodium 2 gm in 100 mls @ 200 mls/hr 06/20/21 23:00 06/22/21 10:26 Rocephin/Ns 2 Gm/100 Ml IV 200 mls/hr Q24HR BEBA Administration Protocol Insulin Human Lispro 0 unit 06/21/21 11:30 06/22/21 16:30 Insulin Lispro 100 Unit/Ml SUB-Q 2 unit ACHS BEBA Administration Protocol Linagliptin 5 mg 06/21/21 08:30 06/22/21 10:27 Linagliptin 5 Mg Tab PO 5 mg QDDIAB BEBA Administration Lorazepam 1 mg 06/21/21 22:00 06/21/21 22:41 Lorazepam 1 Mg Tab PO 1 mg QHS BEBA Administration Losartan Potassium 50 mg 06/21/21 10:00 06/22/21 10:27 Losartan 50 Mg Tab PO 50 mg QDAY BEBA Administration Metformin HCl 1,000 mg 06/21/21 08:30 06/22/21 16:30 Metformin 500 Mg Tab PO 1,000 mg BIDDIAB BEBA Administration Methocarbamol 750 mg 06/21/21 07:41 Methocarbamol 750 Mg Tab PO Q8H PRN Spasms Metoclopramide HCl 10 mg 06/20/21 23:30 Metoclopramide 10 Mg/2 Ml Inj IV Q6H PRN Nausea And Vomiting Miscellaneous Medication 1 mg 06/21/21 10:00 Anastrozole PO DAILY BEBA Ondansetron HCl 4 mg 06/20/21 23:00 Ondansetron 4 Mg/2 Ml Inj IV Q3H PRN Nausea And Vomiting Oxycodone/Acetaminophen 1 tab 06/20/21 23:30 Oxycodone /Acetaminophen 5-325mg Tab PO Q6H PRN Pain, Moderate (4-6) Sodium Chloride 10 ml 06/20/21 23:00 06/22/21 10:28 Sodium Chloride 0.9% 10 Ml Flush Syringe IV 10 ml BID BEBA Administration Sodium Chloride 10 ml 06/20/21 23:00 Sodium Chloride 0.9% 10 Ml Flush Syringe IV PRN PRN LINE FLUSH Nutrition/Malnutrition Assess - Dietary Evaluation Nutrition/Malnutrition Findings: Nutrition Notes Start: 06/21/21 13:34 Freq: Status: Active Protocol: Document 06/21/21 13:34 GB (Rec: 06/21/21 13:46 GB [email or web address]) Nutrition Notes Need for Assessment generated from: ssis developer Initial or Follow up Assessment Current Diagnosis Diabetes,Hypertension, Respiratory Failure Other Pertinent Diagnosis Bilateral PNA Current Diet Regular Labs/Tests 06/21: creatinine 0.5, glucose 234 Pertinent Medications azithromycin Height 5 ft 5 in Weight 230 kg [place] Body Weight (kg) 56.81 BMI 84.4 Intake Prior to Admission Good Weight change and time frame No reported weight change Weight Status Morbidly Obese Subjective/Other Information consult for skin risk assessment <=18. Percent of energy/protein needs met: Good PO meets 80% or greater of estimated energy needs Burn Absent Trauma Absent GI Symptoms None Food Allergy No Skin Integrity/Comment skin risk assessment <=18 Current % PO Good (75-100%) Minimum of two criteria No #1 Nutrition Diagnosis No nutrition diagnosis at this time Etiology bilateral PNA, respiratory failure As Evidenced by Signs and Symptoms good PO intake, no reported change in weight Is patient on ventilator? No Is Patient Ambulatory and/or Out of Bed Yes REE-([place], [place]-ambulatory/OOB) [ 3764.644 NUTR.MSJOOB] Kcal/Kg value to use for calculation 10 Approximate Energy Requirements Using 2300 kcal/Kg Calculation Used for Recommendations Kcal/kg Additional Notes Protein 0.8-1 g/kg @ 84k- 84g Fluids: 1 ml/kcal or per MD Nutrition Intervention Change Diet Order: continue current diet Nutrition Support: n/a Add Supplement/Snack (indicate name/kcal n/a unless PO intake decreases /protein ) below 50% of meals daily Goal #1 PO intake of meals to maintain 50% or greater TID daily for LOS Goal #2 Weight to maintain within +/-3 % current weight during LOS Follow-Up By: 06/28/21 Additional Comments Monitor and record PO intake % for meals.
[2021-06-22] MEDS: guaiFENesin/CODEINE 100-10MG ORAL LIQD 5 ML PO PRN (21:00)
[2021-06-22] MEDS: LORazepam 1 MG TAB PO SCH (21:00)
[2021-06-22] MEDS: AZITHROMYCIN/NS 500 MG/250 ML 500 MG/250 ML BAG IV SCH (22:43)
[2021-06-23] MEDS: guaiFENesin/CODEINE 100-10MG ORAL LIQD 5 ML PO PRN ×4 (05:41→20:44)
[2021-06-23] MEDS: ENOXAPARIN 40 MG/0.4 ML INJ SUB-Q SCH ×2 (09:24→22:38)
[2021-06-23] MEDS: metFORMIN 500 MG TAB PO SCH ×2 (09:24→16:43)
[2021-06-23] MEDS: LINAGLIPTIN 5 MG TAB PO SCH (09:25)
[2021-06-23] MEDS: FAMOTIDINE 20 MG TAB PO SCH ×2 (09:25→22:37)
[2021-06-23] MEDS: dexAMETHasone 4 MG/ML VIAL IV SCH (09:25)
[2021-06-23] MEDS: CETIRIZINE 10 MG TAB PO SCH (09:25)
[2021-06-23] MEDS: cefTRIAXone/NS 2 GM/100 ML 2 GM/100 ML BAG IV SCH (09:26)
[2021-06-23] MEDS: INSULIN LISPRO 100 UNIT/ML SUB-Q SCH ×4 (09:30→22:47)
[2021-06-23] MEDS: LOSARTAN 50 MG TAB PO SCH (09:30)
[2021-06-23] MEDS: cloNIDine 0.1 MG TAB PO SCH ×2 (09:31→22:38)
--- NOTE | 2021-06-23 12:07 | Progress Note ---
Assessment and Plan Assessment and plan: 55-year-old morbidly obese female patient had Covid infection in April 2021, readmitted this time with worsening shortness of breath Ramires PCR test during this admission is negative however patient has all progressive symptoms with worsening pneumonia bilateral on chest x-ray Elevated inflammatory markers, atypical pneumonia on CT chest, continue steroids higher dose 8 mg IV total 10 to 14 days follow inflammatory markers, Home oxygen evaluation, supplemental oxygen with wean as tolerated, prone po sitioning, patient has bilateral pneumonia on empiric antibiotics Follow procalcitonin levels, if within normal limits DC antibiotics. Patient feels slightly better today --COVID-19 test is negative 06/21/2021 --Covid positive status last month 04/2021 - Acute respiratory failure with hypoxia Current Visit: Yes Status: Acute Patient was hypoxic in the PCPs office Oxygen levels to be evaluated Nasal cannula oxygen as necessary --Elevated D-dimers; Current Visit: Yes Status: Acute CTA chest; negative for PE, extensive atypical pneumonia throughout both lungs ,consistent with COVID-19 Progressive symptoms from last month COVID-19 infection --SIRS (systemic inflammatory response syndrome) Current Visit: Yes Status: Acute Patient's D-dimer is elevated at 532 ferritin was 336 but CRP was normal. --Bilateral pneumonia Current Visit: Yes Status: Acute Patient was positive Covid 1 month ago COVID-19 related sequelae with progressive symptoms of worsening pneumonia Continue empiric IV ceftriaxone and IV Zithromax. Procalcitonin levels normal, DC antibiotics if okay with ID --PUI; negative Covid test 06/21/2021 Current Visit: Yes Status: Acute Patient was tested positive for Covid on May 21 --T2DM (type 2 diabetes mellitus) Current Visit: Yes Status: Chronic Patient initiated on Janumet and insulin coverage Hemoglobin A1c is 8.0-hence poorly controlled Patient may need to be discharged on insulin We will defer to primary team --Hypertension Current Visit: Yes Status: Chronic Continue antihypertensives and as needed hydralazine --History of breast cancer; Current Visit: Yes Status: Chronic Patient is being on chemotherapy She will take her own medication during the hospital stay --DVT prophylaxis Current Visit: Yes Status: Acute Plan to address problem: Patient on Lovenox and GI prophylaxis We will closely monitor the patient and adjust the management as needed Plan of care reviewed with the patient and her nurse consults and recommendations noted and appreciated 06/22/2021; Covid test negative Continue empiric antibiotics Follow inflammatory markers Follow procalcitonin , if normal will DC antibiotics 06/23/2021; Home O2 evaluation Follow ID recommendations Possible discharge in 1 to 2 days if stable History Interval history: I have seen and examined the patient at the bedside Patient's chart and medications reviewed Patient feels slightly better continues to have mild cough Vital signs noted Hospitalist Physical - Constitutional Vitals: Temp Pulse Resp BP Pulse Ox 98.3 F 77 18 132/68 94 06/23/21 04:52 06/23/21 09:30 06/23/21 04:52 06/23/21 09:30 06/23/21 04:52 General appearance: Present: no acute distress, well-nourished, obese (Morbidly obese) - EENT Eyes: Present: PERRL, EOM intact - Neck Neck: Present: supple, normal ROM - Respiratory Respiratory effort: normal Respiratory: bilateral: diminished, rhonchi, negative: rales, wheezing - Cardiovascular Rhythm: regular Heart Sounds: Present: S1 & S2 - Extremities Extremities: no ischemia, No edema - Abdominal General gastrointestinal: soft, non-tender, non-distended, normal bowel sounds - Integumentary Integumentary: Present: clear, warm - Psychiatric Psychiatric: appropriate mood/affect, cooperative - Neurologic Neurologic: CNII-XII intact, moves all extremities Results - Labs CBC & Chem 7: 06/21/21 09:35 06/21/21 09:35 Labs: Laboratory Last Values WBC 6.1 K/mm3 (4.5-11.0) 06/21/21 09:35 RBC 5.24 M/mm3 (3.65-5.03) H 06/21/21 09:35 Hgb 16.1 gm/dl (10.1-14.3) H 06/21/21 09:35 Hct 47.9 % (30.3-42.9) H 06/21/21 09:35 MCV 91 fl (79-97) 06/21/21 09:35 MCH 31 pg (28-32) 06/21/21 09:35 MCHC 34 % (30-34) 06/21/21 09:35 RDW 14.4 % (13.2-15.2) 06/21/21 09:35 Plt Count 266 K/mm3 (140-440) 06/21/21 09:35 Lymph % (Auto) 13.5 % (13.4-35.0) 06/21/21 09:35 [place] % (Auto) 2.0 % (0.0-7.3) 06/21/21 09:35 Eos % (Auto) 0.0 % (0.0-4.3) 06/21/21 09:35 Baso % (Auto) 0.6 % (0.0-1.8) 06/21/21 09:35 Lymph # (Auto) 0.8 K/mm3 (1.2-5.4) L 06/21/21 09:35 [place] # (Auto) 0.1 K/mm3 (0.0-0.8) 06/21/21 09:35 Eos # (Auto) 0.0 K/mm3 (0.0-0.4) 06/21/21 09:35 Baso # (Auto) 0.0 K/mm3 (0.0-0.1) 06/21/21 09:35 Seg Neutrophils % 83.9 % (40.0-70.0) H 06/21/21 09:35 Seg Neutrophils # 5.1 K/mm3 (1.8-7.7) 06/21/21 09:35 D-Dimer 532.71 ng/mlDDU (0-234) H 06/20/21 21:05 Sodium 139 mmol/L (137-145) 06/21/21 09:35 Potassium 4.5 mmol/L (3.6-5.0) 06/21/21 09:35 Chloride 102.4 mmol/L (98-107) 06/21/21 09:35 Carbon Dioxide 25 mmol/L (22-30) 06/21/21 09:35 Anion Gap 16 mmol/L 06/21/21 09:35 BUN 10 mg/dL (7-17) 06/21/21 09:35 Creatinine 0.5 mg/dL (0.6-1.2) L 06/21/21 09:35 Estimated GFR > 60 ml/min 06/21/21 09:35 BUN/Creatinine Ratio 20 % 06/21/21 09:35 Glucose 234 mg/dL (65-100) H 06/21/21 09:35 POC Glucose 166 mg/dL (70-105) H 06/23/21 08:05 Hemoglobin A1c 8.0 % (4-6) H 06/20/21 21:05 Calcium 9.3 mg/dL (8.4-10.2) 06/21/21 09:35 Ferritin 336.8 ng/mL (10.0-200.0) H 06/20/21 21:05 Total Bilirubin 0.50 mg/dL (0.1-1.2) 06/20/21 21:05 AST 49 units/L (5-40) H 06/20/21 21:05 ALT 41 units/L (7-56) 06/20/21 21:05 Alkaline Phosphatase 119 units/L (35-129) 06/20/21 21:05 Lactate Dehydrogenase 247 units/L (91-180) H 06/20/21 21:05 C-Reactive Protein 1.00 mg/dL (0.00-1.30) 06/20/21 21:05 Total Protein 6.9 g/dL (6.3-8.2) 06/20/21 21:05 Albumin 3.8 g/dL (3.9-5) L 06/20/21 21:05 Albumin/Globulin Ratio 1.2 % 06/20/21 21:05 Procalcitonin < 0.05 ng/mL (<0.15) 06/20/21 21:05 Coronavirus (PCR) Negative (Negative) 06/21/21 Unknown Power/IV: Voiding Method Toilet Active Medications - Current Medications Current Medications: Generic Name Dose Route Start Last Admin Trade Name Efremq PRN Reason Stop Dose Admin Acetaminophen 650 mg 06/20/21 23:00 Acetaminophen 325 Mg Tab PO Q4H PRN Pain MILD(1-3)/Fever >100.5/GUTIÉRREZ Acetaminophen/Butalbital/Caffeine 1 tab 06/20/21 23:30 06/22/21 12:31 Butalb/Acetaminophen/Caffeine Tab PO 1 tab Q4H PRN Administration Headache Cetirizine HCl 10 mg 06/21/21 10:00 06/23/21 09:25 Cetirizine 10 Mg Tab PO 10 mg DAILY BEBA Administration Clonidine HCl 0.1 mg 06/21/21 10:00 06/23/21 09:31 Clonidine 0.1 Mg Tab PO 0.1 mg Q12HR BEBA Administration Dexamethasone 8 mg 06/21/21 10:00 06/23/21 09:25 Dexamethasone 4 Mg/Ml Vial IV 06/29/21 10:01 8 mg DAILY BEBA Administration Enoxaparin Sodium 40 mg 06/21/21 10:00 06/23/21 09:24 Enoxaparin 40 Mg/0.4 Ml Inj SUB-Q 40 mg Q12HR BEBA Administration Famotidine 20 mg 06/20/21 23:30 06/23/21 09:25 Famotidine 20 Mg Tab PO 20 mg BID BEBA Administration Hydromorphone HCl 0.5 mg 06/20/21 23:30 Hydromorphone 1 Mg/1 Ml Inj IV Q3H PRN Pain , Severe (7-10) Azithromycin 500 mg in 250 mls @ 250 mls/hr 06/20/21 23:30 06/22/21 22:43 Zithromax/Ns IV 250 mls/hr Q24H BEBA Administration Ceftriaxone Sodium 2 gm in 100 mls @ 200 mls/hr 06/20/21 23:00 06/23/21 09:26 Rocephin/Ns 2 Gm/100 Ml IV 200 mls/hr Q24HR BEBA Administration Protocol Insulin Human Lispro 0 unit 06/21/21 11:30 06/23/21 09:30 Insulin Lispro 100 Unit/Ml SUB-Q Not Given ACHS BEBA Protocol Linagliptin 5 mg 06/21/21 08:30 06/23/21 09:25 Linagliptin 5 Mg Tab PO 5 mg QDDIAB BEBA Administration Lorazepam 1 mg 06/21/21 22:00 06/22/21 21:00 Lorazepam 1 Mg Tab PO 1 mg QHS BEBA Administration Losartan Potassium 50 mg 06/21/21 10:00 06/23/21 09:30 Losartan 50 Mg Tab PO 50 mg QDAY BEBA Administration Metformin HCl 1,000 mg 06/21/21 08:30 06/23/21 09:24 Metformin 500 Mg Tab PO 1,000 mg BIDDIAB BEBA Administration Methocarbamol 750 mg 06/21/21 07:41 06/23/21 09:29 Methocarbamol 750 Mg Tab PO 750 mg Q8H PRN Administration Spasms Metoclopramide HCl 10 mg 06/20/21 23:30 Metoclopramide 10 Mg/2 Ml Inj IV Q6H PRN Nausea And Vomiting Miscellaneous Medication 1 mg 06/21/21 10:00 Anastrozole PO DAILY BEBA Ondansetron HCl 4 mg 06/20/21 23:00 Ondansetron 4 Mg/2 Ml Inj IV Q3H PRN Nausea And Vomiting Oxycodone/Acetaminophen 1 tab 06/20/21 23:30 Oxycodone /Acetaminophen 5-325mg Tab PO Q6H PRN Pain, Moderate (4-6) Pseudoephedrine/Acetam/Chlorphenir 10 ml 06/22/21 17:00 06/23/21 11:10 Guaifenesin/Codeine 100-10mg Oral Liqd 5 Ml PO 10 ml Q4H PRN Administration Cough Sodium Chloride 10 ml 06/20/21 23:00 06/23/21 09:26 Sodium Chloride 0.9% 10 Ml Flush Syringe IV 10 ml BID BEBA Administration Sodium Chloride 10 ml 06/20/21 23:00 Sodium Chloride 0.9% 10 Ml Flush Syringe IV PRN PRN LINE FLUSH Nutrition/Malnutrition Assess - Dietary Evaluation Nutrition/Malnutrition Findings: Nutrition Notes Start: 06/21/21 13:34 Freq: Status: Active Protocol: Document 06/21/21 13:34 GB (Rec: 06/21/21 13:46 GB [id number]) 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 Percent of energy/protein needs met: Good PO meets 80% or greater of estimated energy needs Burn Absent Trauma Absent GI Symptoms None Food Allergy No Skin Integrity/Comment skin risk assessment <=18 Current % PO Good (75-100%) Minimum of two criteria No #1 Nutrition Diagnosis No nutrition diagnosis at this time Etiology bilateral PNA, respiratory failure As Evidenced by Signs and Symptoms good PO intake, no reported change in weight Is patient on ventilator? No Is Patient Ambulatory and/or Out of Bed Yes REE-([place]-ambulatory/OOB) [ 3764.644 NUTR.MSJOOB] Kcal/Kg value to use for calculation 10 Approximate Energy Requirements Using 2300 kcal/Kg Calculation Used for Recommendations Kcal/kg Additional Notes Protein 0.8-1 g/kg @ 84k- 84g Fluids: 1 ml/kcal or per MD Nutrition Intervention Change Diet Order: continue current diet Nutrition Support: n/a Add Supplement/Snack (indicate name/kcal n/a unless PO intake decreases /protein ) below 50% of meals daily Goal #1 PO intake of meals to maintain 50% or greater TID daily for LOS Goal #2 Weight to maintain within +/-3 % current weight during LOS Follow-Up By: 06/28/21 Additional Comments Monitor and record PO intake % for meals.
[2021-06-23] MEDS: BENZOCAINE/MENTHOL LOZENGE MM PRN ×2 (15:25→22:51)
[2021-06-23] MEDS: BUTALB/ACETAMINOPHEN/CAFFEINE TAB PO PRN (16:45)
--- NOTE | 2021-06-23 18:29 | Progress Note ---
Assessment and Plan Cultures: COVID-19 PCR: Positive as outpatient a month ago. Negative here. A/P: 55/F with diabetes, hypertension, obesity, diagnosed with COVID-19 in April 2021 admitted with: #Bilateral pneumonia: COVID here is negative, suspect COVID-19 related sequelae since she was positive a month ago and has had progressive symptoms. CXR with worsening disease. WBC 9.2, D-dimer 532, ferritin 336, CRP 1.0. CT chest done, showed no PE, showed extensive bilateral atypical pneumonia consistent with COVI D-19 type features. #Acute hypoxic respiratory failure: On nasal cannula. #Diabetes mellitus type 2: Uncontrolled #Obesity Recs: Continue steroids for 10 to 14 days Normal procalcitonin, antibiotics stopped Oxygen weaning Infectious disease will sign off, please call with questions. Lloyd Camejo MD [facility] ([facility]) O: [phone] F: [phone] Subjective Date of service: 06/23/21 Interval history: Afebrile, normal white count. Objective - Exam Narrative Exam: Physical exam deferred to reduce risk of transmission of COVID-19. Please refer to primary team's note. - Constitutional Vitals: Vital Signs Temp Pulse Resp BP Pulse Ox 98.3 F 68 20 132/68 95 06/23/21 04:52 06/23/21 12:22 06/23/21 16:45 06/23/21 09:30 06/23/21 13:02 Temperature -Last 24 Hours Temperature 98.3 F Temperature 98.2 F - Labs CBC & Chem 7: 06/21/21 09:35 06/21/21 09:35 Labs: Abnormal lab results 06/22/21 06/23/21 06/23/21 Range/Units 21:58 08:05 12:18 POC Glucose 189 H 166 H 187 H (70-105) mg/dL
[2021-06-23] MEDS: LORazepam 1 MG TAB PO SCH (22:39)
[2021-06-24 05:56] VITALS: BP 117/65
[2021-06-24] MEDS: INSULIN LISPRO 100 UNIT/ML SUB-Q SCH ×2 (07:30→11:30)
[2021-06-24] MEDS: metFORMIN 500 MG TAB PO SCH (08:00)
[2021-06-24] MEDS: LINAGLIPTIN 5 MG TAB PO SCH (08:00)
--- NOTE | 2021-06-24 09:59 | Discharge Summary ---
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 Patient apparently tested positive for Covid on May 21 and since then has been symptomatic with her cough and shortness of breath and loss of taste. On her checkup with her PCP-patient had bilateral pneumonia and slightly hypoxic-hence direct admission for respiratory failure and bilateral pneumonia and possible Covid pneumonia. Patient continues to have cough and shortness of breath for the last 4 weeks. Patient was noted to have bilateral pneumonia, started on empiric antibiotics patient had recent Covid positive infection, Repeat Covid test during this admission was negative, ID evaluated the patient and felt that patient has residual symptoms due to the recent COVID-19 infection fraction, started on empiric antibiotics, evaluated by ID medications optimized, procalcitonin levels are range, empiric antibiotic discontinued. Evaluated by home oxygen, recommended incentive spirometry. Patient symptoms significantly improved today patient is comfortable no new complaints, vital signs stable Physical examination prior to discharge is unremarkable, patient is hemodynamically and clinically stable at discharge Discharge diagnosis -- Acute respiratory failure with hypoxia Patient was hypoxic in the PCPs office Home oxygen evaluation negative criteria for home O2 --Elevated D-dimers; Current Visit: Yes Status: Acute CTA chest; negative for PE, --SIRS (systemic inflammatory response syndrome) Current Visit: Yes Status: Acute Patient's D-dimer is elevated at 532 ferritin was 336 but CRP was normal. --Bilateral pneumonia Current Visit: Yes Status: Acute Patient was positive Covid 1 month ago COVID-19 related sequelae with progressive symptoms of worsening pneumonia Continue empiric IV ceftriaxone and IV Zithromax. Procalcitonin levels normal, DC antibiotics if okay with ID --PUI; negative Covid test 06/21/2021 Current Visit: Yes Status: Acute Patient was tested positive for Covid on May 21 --T2DM (type 2 diabetes mellitus) Current Visit: Yes Status: Chronic Patient initiated on Janumet and insulin coverage Hemoglobin A1c is 8.0-hence poorly controlled Patient may need to be discharged on insulin We will defer to primary team --Hypertension Current Visit: Yes Status: Chronic Continue antihypertensives and as needed hydralazine --History of breast cancer; Current Visit: Yes Status: Chronic Patient is being on chemotherapy She will take her own medication during the hospital stay --Obesity: BMI 38.3 Current Visit: Yes Status: Chronic Patient advised diet modification exercise as tolerated and weight reduction --DVT prophylaxis Current Visit: Yes Status: Acute Plan to address problem: Patient on Lovenox and GI prophylaxis We will closely monitor the patient and adjust the management as needed Plan of care reviewed with the patient and her nurse consults and recommendations noted and appreciated 06/22/2021; Covid test negative Continue empiric antibiotics Follow inflammatory markers Follow procalcitonin , if normal will DC antibiotics 06/23/2021; Home O2 evaluation, Follow ID recommendations Possible discharge in 1 to 2 days if stable O2 sats are within normal limits Does not fit criteria for home O2 Disposition: 01 HOME / SELF CARE / HOMELESS Final Discharge Diagnosis (Prints w/discharge instructions): Acute hypoxic respiratory failure present on admission/resolved. Bilateral pneumonia. Elevated D-dimers; negative for PE. SIRS. Negative COVID-19. History of breast cancer. Hypertension. Obesity BMI 38.3. Diabetes mellitus Time spent for discharge: 35 min Core Measure Documentation - Palliative Care Palliative Care/ Comfort Measures: Not Applicable - Core Measures Any of the following diagnoses?: none Exam - Constitutional Vitals: Temp Pulse Resp BP Pulse Ox 97.8 F 63 16 117/65 97 06/24/21 04:27 06/24/21 04:27 06/24/21 04:27 06/24/21 04:06/24/21 04:27 General appearance: Present: no acute distress, well-nourished - EENT Eyes: Present: PERRL, EOM intact - Neck Neck: Present: supple, normal ROM - Respiratory Respiratory effort: normal Respiratory: bilateral: diminished, rhonchi, negative: rales, wheezing - Cardiovascular Rhythm: regular Heart Sounds: Present: S1 & S2 - Extremities Extremities: no ischemia, No edema - Abdominal General gastrointestinal: Present: soft, non-tender, non-distended, normal bowel sounds - Integumentary Integumentary: Present: clear, warm - Musculoskeletal Musculoskeletal: strength equal bilaterally, generalized weakness - Psychiatric Psychiatric: appropriate mood/affect, cooperative - Neurologic Neurologic: moves all extremities Plan Activity: advance as tolerated Diet: diabetic Additional Instructions: Incentive spirometry as needed, if you have worsening symptoms contact MD or go to emergency room. Advised diet modification exercise as tolerated and weight reduction when you are medically stable. Take Robitussin AC only at night as needed Follow up with: XIOMARA REAL MD [Primary Care Provider] - 7 Days Prescriptions: dexAMETHasone [Decadron] 2 tab PO DAILY #10 tablet Albuterol Mdi (or & Nicu Only) [ProAir HFA Inhaler] 2 puff IH QID PRN #8.5 gram PRN Reason: Shortness Of Breath guaiFENesin/CODEINE [Robitussin AC] 10 ml PO QHS PRN 10 Days #1 box PRN Reason: Cough Benzonatate [Tessalon Perles] 100 mg PO Q8HR #20 capsule
[2021-06-24] MEDS: LOSARTAN 50 MG TAB PO SCH (10:00)
[2021-06-24] MEDS: ENOXAPARIN 40 MG/0.4 ML INJ SUB-Q SCH (10:00)
[2021-06-24] MEDS: CETIRIZINE 10 MG TAB PO SCH (10:00)
[2021-06-24] MEDS: cloNIDine 0.1 MG TAB PO SCH (10:00)
[2021-06-24] MEDS: dexAMETHasone 4 MG/ML VIAL IV SCH (10:00)
[2021-06-24] MEDS: FAMOTIDINE 20 MG TAB PO SCH (10:00)
[2021-06-24] MEDS: guaiFENesin/CODEINE 100-10MG ORAL LIQD 5 ML PO PRN (11:43)
[2021-06-24] MEDS: BUTALB/ACETAMINOPHEN/CAFFEINE TAB PO PRN (11:52)
== END 2021-06-24 16:54 | disposition home or self-care (01) | DRG 193 ==
LOC: 3A 16:29 → UNDOADMIN 16:29 → 3A 20:23
PROVIDERS: ADMIT Internal Medicine; ATTEND Internal Medicine
DX: J18.9 Pneumonia, unspecified organism (principal); J96.01 Acute respiratory failure with hypoxia; R65.10 Systemic inflammatory response syndrome (SIRS) of non-infectious origin without acute organ dysfunction; E11.9 Type 2 diabetes mellitus without complications; Z20.822 Contact with and (suspected) exposure to COVID-19; I10 Essential (primary) hypertension; Z79.899 Other long term (current) drug therapy; E66.01 Morbid (severe) obesity due to excess calories; Z85.3 Personal history of malignant neoplasm of breast; Z82.49 Family history of ischemic heart disease and other diseases of the circulatory system
CPT/HCPCS: 36415; 71046; 71275; 80048; 80053; 82728; 82947; 82962; 83036; 83615; 84145; 85025; 85379; 86140; 93306; G0378; J0456; J0696; J1100; J1650; J1815; J2405; J7030; Q9967; U0003

== ENCOUNTER 2021-07-26 12:45 | Outpatient (CLI) | payer BC ==
--- NOTE | 2021-07-26 13:53 | XRay Report ---
CHEST 2 VIEWS INDICATION / CLINICAL INFORMATION: COUGH. COMPARISON: Chest x-ray on 06/20/2021 FINDINGS: SUPPORT DEVICES: None. HEART / MEDIASTINUM: No significant abnormality. LUNGS / PLEURA: There are mild residual patchy bilateral opacities, although there has been improveme nt from prior. ADDITIONAL FINDINGS: No significant additional findings. IMPRESSION: 1. Mild residual patchy bilateral pulmonary opacities, although there is significant improvement from prior exams. Signer Name: Dusty Shaw MD Signed: 07/26/2021 1:49 PM Workstation Name: [id number]
== END 2021-07-26 12:46 | disposition home or self-care (01) ==
LOC: XRAY 12:45
PROVIDERS: ATTEND Internal Medicine
DX: J98.4 Other disorders of lung (principal)
CPT/HCPCS: 71046

== ENCOUNTER 2021-08-08 07:33 | Outpatient (CLI) | payer BC ==
--- NOTE | 2021-08-08 10:35 | Cat Scan Report ---
CT ABDOMEN AND PELVIS WITHOUT CONTRAST INDICATION / CLINICAL INFORMATION: Abdominal pain history. Breast cancer restaging. TECHNIQUE: Axial CT images were obtained through the abdomen and pelvis without IV contrast. All CT scans at [facility] location are performed using CT dose reduction for ALARA by means of automated exposure control. COMPARISON: 11/15/2020 FINDINGS: LOWER CHEST: Patchy groundglass densities within both lower lungs. LIVER: No significant abnormality. GALLBLADDER: No significant abnormality. BILE DUCTS: No significant abnormality. PANCREAS: No significant abnormality. SPLEEN: No significant abnormality. ADRENALS: No significant abnormality. RIGHT KIDNEY and URETER: No significant abnormality. LEFT KIDNEY and URETER: No significant abnormality. STOMACH and SMALL BOWEL: No significant abnormality. COLON: Sigmoid diverticulosis without diverticulitis.. APPENDIX: No significant abnormality. PERITONEUM: No free fluid. No free air. No fluid collection. LYMPH NODES: Shotty nodes identified along the abdominal retroperitoneum.. AORTA and ARTERIES: No significant abnormality. IVC and VEINS: No significant abnormality. URINARY BLADDER: No significant abnormality. REPRODUCTIVE ORGANS: No significant abnormality. ADDITIONAL FINDINGS: Fat-containing ventral abdominal hernia along the anterior pelvis.. SKELETAL SYSTEM: No significant abnormality. IMPRESSION: 1. No acute intra-abdominal findings within the limits of the noncontrast technique. Sigmoid divertic ulosis without diverticulitis. Shotty nonpathologically enlarged nodes within the retroperitoneum, un changed from 11/15/2020. 2. Streaky groundglass densities throughout both lower lungs suspicious for atypical pneumonia Signer Name: Mika Ballard MD Signed: 08/08/2021 10:31 AM Workstation Name: [id number]
== END 2021-08-08 07:34 | disposition home or self-care (01) ==
LOC: CT 07:33
PROVIDERS: ATTEND Internal Medicine Hematology & Oncology
DX: C50.911 Malignant neoplasm of unspecified site of right female breast (principal); C50.912 Malignant neoplasm of unspecified site of left female breast; R16.1 Splenomegaly, not elsewhere classified; K76.0 Fatty (change of) liver, not elsewhere classified; R74.8 Abnormal levels of other serum enzymes
CPT/HCPCS: 74176

== ENCOUNTER 2021-08-22 09:44 | Outpatient (CLI) | payer BC ==
[2021-08-22 10:18] LABS: Hematocrit 53.2 % (30.3-42.9); Hemoglobin 17.2 gm/dl (10.1-14.3); Mean Corpuscular HGB Conc 32 % (30-34); Mean Corpuscular Volume 90 fl (79-97); Platelet Count 265 K/mm3 (140-440); Red Cell Distribution Width 14.5 % (13.2-15.2)
[2021-08-22 10:43] LABS: Alanine Aminotransferase 75 units/L (7-56); Albumin 4.6 g/dL (3.9-5); Blood Urea Nitrogen 14 mg/dL (7-17); Calcium 9.7 mg/dL (8.4-10.2); Hemolysis Index 2
[2021-08-22 10:48] LABS: BUN/Creatinine Ratio 28
--- NOTE | 2021-08-22 14:01 | Cat Scan Report ---
CT ABDOMEN AND PELVIS WITH CONTRAST INDICATION / CLINICAL INFORMATION: Abdominal pain. TECHNIQUE: Axial CT images were obtained through the abdomen and pelvis after 100 cc of Omnipaque 300 IV contras t. Sagittal and coronal reformatted images. All CT scans at this location are performed using CT dose reduction for ALARA by means of automated exposure control. COMPARISON: 08/08/2021 FINDINGS: LOWER CHEST: Subtle groundglass densities in both lower lung zones are again seen and unchanged. No c onsolidation or pleural effusion. LIVER: No significant abnormality. GALLBLADDER: Surgically removed. BILE DUCTS: No significant abnormality. PANCREAS: No significant abnormality. SPLEEN: No significant abnormality. ADRENALS: No significant abnormality. RIGHT KIDNEY and URETER: No significant abnormality. LEFT KIDNEY and URETER: No significant abnormality. STOMACH and SMALL BOWEL: No significant abnormality. COLON: Mild diverticulosis of the distal colon is unchanged. No acute inflammation. APPENDIX: No significant abnormality. PERITONEUM: No free fluid. No free air. No fluid collection. LYMPH NODES: No significant adenopathy. AORTA and ARTERIES: No significant abnormality. IVC and VEINS: No significant abnormality. URINARY BLADDER: No significant abnormality. REPRODUCTIVE ORGANS: Stable hysterectomy changes. No adnexal abnormality. The vaginal cuff is unremar kable. ADDITIONAL FINDINGS: Stable small umbilical hernia containing fat. SKELETAL SYSTEM: No significant abnormality. IMPRESSION: No acute process is appreciated. No clear explanation for abdominal pain. Subtle groundglass densities in the lower lung zones are again seen and appear nonspecific. Sigmoid diverticulosis without evidence of diverticulitis. Cholecystectomy and hysterectomy. Signer Name: Walter Baird Jr, MD Signed: 08/22/2021 1:56 PM Workstation Name: [id number]
--- NOTE | 2021-08-22 17:38 | Mammography Report ---
RIGHT DIGITAL DIAGNOSTIC MAMMOGRAM WITH CAD 08/22/2021 BILATERAL LIMITED BREAST ULTRASOUND INDICATION: The patient reports a palpable lump in the upper outer right breast and focal pain in the upper outer left breast. TECHNIQUE: Digital right mammographic imaging was performed. Spot compression views were obtained. L imited ultrasound was performed. This examination was interpreted with the benefit of Computer-Aided Detection (CAD) analysis. COMPARISON: Bilateral mammogram, 11/24/2020 and 11/18/2019 FINDINGS: Breast Density: There are scattered areas of fibroglandular density. MAMMOGRAPHIC FINDINGS: There is no evidence of dominant mass, suspicious calcifications or architectu ral distortion in the right breast. Spot compression views of the upper outer right breast in the pat ient's area of palpable concern demonstrate no focal abnormality to account for the patient's area of clinical concern as marked by the skin marker. ULTRASOUND FINDINGS: Targeted ultrasound evaluation was performed of the area of interest. Right breast: Sonographic evaluation of the 10:00 axillary tail location in the patient's area of pal pable concern demonstrates no evidence of suspicious solid mass or shadowing. Left breast: Sonographic evaluation of the patient's area of pain in the upper outer left breast demo nstrates no evidence of suspicious solid mass or shadowing. A few scattered small simple cysts are no jr, the largest of which measures 3 mm. IMPRESSION: 1. No mammographic or sonographic abnormality to account for the patient's area of palpable concern i n the upper outer right breast. Therefore, clinical correlation is recommended. 2. No sonographic abnormality to account for the patient's left breast pain. Follow up recommendation: Clinical exam BI-RADS Category 2: Benign. A "normal" or negative report should not discourage follow up or biopsy of a clinically significant f inding. A written summary of these findings will be mailed to the patient. The patient will be entered into a mammography reporting system which will generate a reminder letter for the patient's next appointmen t at the appropriate interval. According to the [employer], yearly mammograms are recommended starting at age 40 and continuing as long as a woman is in good health. Breast MRI is recommended for women with an zoie roximately 20-25% or greater lifetime risk of breast cancer, including women with a strong family his tory of breast or ovarian cancer and women who have been treated for Hodgkin's disease. Signer Name: Tonya Coyle MD Signed: 08/22/2021 5:33 PM Workstation Name: [id number]
== END 2021-08-22 09:45 | disposition home or self-care (01) ==
LOC: US 09:44
PROVIDERS: ATTEND Internal Medicine Hematology & Oncology
DX: C50.911 Malignant neoplasm of unspecified site of right female breast (principal); C50.912 Malignant neoplasm of unspecified site of left female breast; E11.9 Type 2 diabetes mellitus without complications; E55.9 Vitamin D deficiency, unspecified; R74.8 Abnormal levels of other serum enzymes; K76.0 Fatty (change of) liver, not elsewhere classified; R16.1 Splenomegaly, not elsewhere classified; K57.30 Diverticulosis of large intestine without perforation or abscess without bleeding; K42.9 Umbilical hernia without obstruction or gangrene; Z90.49 Acquired absence of other specified parts of digestive tract; Z90.710 Acquired absence of both cervix and uterus
CPT/HCPCS: 36415; 74177; 76642; 77065; 80053; 85027; 86300; Q9967

== ENCOUNTER 2021-10-17 09:31 | Outpatient (CLI) | payer BC ==
--- NOTE | 2021-10-17 10:19 | XRay Report ---
CHEST 2 VIEWS INDICATION / CLINICAL INFORMATION: U07.1 COVID-19. COMPARISON: 07/26/2021 FINDINGS: SUPPORT DEVICES: None. HEART / MEDIASTINUM: No significant abnormality. LUNGS / PLEURA: No significant pulmonary or pleural abnormality. No pneumothorax. ADDITIONAL FINDINGS: No significant additional findings. IMPRESSION: 1. No acute findings. Signer Name: Dmitri Hernandez MD Signed: 10/17/2021 10:14 AM Workstation Name: [id number]
== END 2021-10-17 09:32 | disposition home or self-care (01) ==
LOC: XRAY 09:31
PROVIDERS: ATTEND Internal Medicine
DX: U07.1 COVID-19 (principal)
CPT/HCPCS: 71046

== ENCOUNTER 2022-01-08 10:26 | Outpatient (CLI) | payer BC, OTHER | END 2022-01-08 10:27 | disposition home or self-care (01) | LOC: LABHHL 10:26 | PROVIDERS: ATTEND Surgery | DX: N63.13 Unspecified lump in the right breast, lower outer quadrant (principal) | CPT/HCPCS: 88305 ==

== ENCOUNTER 2022-02-05 12:39 | Outpatient (CLI) | payer OTHER ==
--- NOTE | 2022-02-05 16:19 | Magnetic Resonance Report ---
MRI BREAST BILATERAL WITH AND WITHOUT CONTRAST, 02/05/2022 CLINICAL INFORMATION / INDICATION: Personal history of breast cancer. Right breast lump, lower outer quadrant. TECHNIQUE: Axial T1 and T2-weighted fat sat images were obtained precontrast. 19 cc Clariscan contras t was injected intravenously and serial axial T1 weighted images with fat saturation were obtained. 3 -D MIP projections, kinetic analysis, and subtraction imaging were utilized to evaluate. A dedicated 8-channel breast coil was used for image acquisition. COMPARISON: Diagnostic right mammogram and right breast ultrasound dated 08/22/2021. Screening mammog sherly dated 11/24/2020. FINDINGS: BREAST DENSITY: Scattered areas of fibroglandular density. BACKGROUND ENHANCEMENT: Low level background enhancement within both breasts. RIGHT BREAST: No dominant mass or suspicious area of enhancement in the right breast. LEFT BREAST: No dominant mass or suspicious area of enhancement in the left breast. AXILLAE: No pathologically enlarged axillary lymph nodes. ADDITIONAL FINDINGS: Limited imaging of the thorax and upper abdomen demonstrates no focal abnormalit y. IMPRESSION: 1. No MRI evidence of malignancy. Follow up recommendation: Back to schedule. BI-RADS Category 1: NEGATIVE. Signer Name: Shine Jones MD Signed: 02/05/2022 4:15 PM Workstation Name: [employer]
== END 2022-02-05 12:40 | disposition home or self-care (01) ==
LOC: SPVIMAG 12:39
PROVIDERS: ATTEND Surgery
DX: N63.13 Unspecified lump in the right breast, lower outer quadrant (principal); Z85.3 Personal history of malignant neoplasm of breast
CPT/HCPCS: A9575; C8908; 77049

== ENCOUNTER 2022-05-07 09:36 | Outpatient (CLI) | payer OTHER ==
[2022-05-07 12:40] LABS: Basophils # (Auto) 0.1 K/mm3 (0.0-0.1); Basophils % (Auto) 0.8 % (0.0-1.8); Eosinophils # (Auto) 0.8 K/mm3 (0.0-0.4); Eosinophils % (Auto) 8.5 % (0.0-4.3); Hematocrit 48.9 % (30.3-42.9); Hemoglobin 15.9 gm/dl (10.1-14.3); Lymphocytes # (Auto) 1.8 K/mm3 (1.2-5.4); Lymphocytes % (Auto) 19.8 % (13.4-35.0); Mean Corpuscular HGB Conc 33 % (30-34); Mean Corpuscular Volume 89 fl (79-97); Monocytes # (Auto) 0.7 K/mm3 (0.0-0.8); Monocytes % (Auto) 7.8 % (0.0-7.3); Platelet Count 267 K/mm3 (140-440); Red Cell Distribution Width 14.1 % (13.2-15.2)
[2022-05-07 12:49] LABS: Alanine Aminotransferase 93 units/L (7-56); Albumin 4.6 g/dL (3.9-5); Blood Urea Nitrogen 11 mg/dL (7-17); Calcium 9.6 mg/dL (8.4-10.2); Chol/HDL Ratio 4.05 %; HDL Cholesterol 57 mg/dL (40-59); Hemolysis Index 9; LDL Cholesterol,Direct 157 mg/dL (50-130)
[2022-05-07 13:04] LABS: BUN/Creatinine Ratio 22
[2022-05-07 13:24] LABS: Creatinine,Urine 49.8 mg/dL (0.1-20.0)
[2022-05-07 13:44] LABS: Color,Urine Straw (Yellow)
[2022-05-07 13:45] LABS: Bilirubin,Urine Negative (Negative)
[2022-05-07 13:46] LABS: Blood,Urine Negative (Negative); Protein,Urine <15 mg/dL mg/dL (Negative)
== END 2022-05-07 09:37 | disposition home or self-care (01) ==
LOC: LABHHL 09:36
PROVIDERS: ATTEND Internal Medicine
DX: E78.5 Hyperlipidemia, unspecified (principal); E11.9 Type 2 diabetes mellitus without complications; E55.9 Vitamin D deficiency, unspecified; R53.83 Other fatigue
CPT/HCPCS: 36415; 80053; 80061; 81001; 82043; 82306; 82607; 83036; 84443; 85025; 87086

== ENCOUNTER 2022-06-20 07:57 | Outpatient (CLI) | payer OTHER ==
--- NOTE | 2022-06-21 16:14 | Mammography Report ---
DIGITAL SCREENING MAMMOGRAM WITH TOMOSYNTHESIS WITH CAD, 06/20/2022 CLINICAL INFORMATION / INDICATION: Routine Screening Mammography. TECHNIQUE: Digital bilateral 2D and 3D mammography with tomosynthesis was obtained in the craniocauda l and mediolateral oblique projections. Computer-Aided Detection (CAD) analysis was used for interpr etation of this study. COMPARISON: Prior mammogram 11/24/2020 and 11/18/2019 FINDINGS: Breast Density: There are scattered areas of fibroglandular density. No dominant mass, suspicious calcifications, or architectural distortion in either breast. There is stable benign posttreatment change in both breasts. There has been no significant change com pared with the prior examinations. IMPRESSION: No mammographic evidence of malignancy. Follow up recommendation: Routine yearly screening mammogram. BI-RADS Category 2: BENIGN. A "normal" or negative report should not discourage follow up or biopsy of a clinically significant f inding. A written summary of these findings will be mailed to the patient. The patient will be entered into a mammography reporting system which will generate a reminder letter for the patient's next appointmen t at the appropriate interval. The [employer] recommends yearly mammograms starting at age 40 and continuing as l monico as a woman is in good health. Breast MRI is recommended for women with an approximate 20-25% or greater lifetime risk of breast cancer, including women with a strong family history of breast or ova claudia cancer or who have been treated for Hodgkin's disease. Signer Name: Mary Milian MD Signed: 06/21/2022 4:09 PM Workstation Name: [id number]
== END 2022-06-20 07:58 | disposition home or self-care (01) ==
LOC: SPVWC 07:57
PROVIDERS: ATTEND Surgery
DX: Z12.31 Encounter for screening mammogram for malignant neoplasm of breast (principal)
CPT/HCPCS: 77063; 77067